=== PATIENT | female | born 1940 | race Caucasian/White ===

== ENCOUNTER → 2016-05-16 | Outpatient (CLI) | payer MEDICARE, BC ==
--- NOTE | 2016-05-16 12:55 | REP ---
PA and lateral chest: Comparison is 08/27/2005. The lung irene are clear. The cardiac size is normal The hanane, mediastinum, and bony thorax are unremarkable. Impression: Negative PA and lateral chest. There is no interval change. Signed by Usman Slater MD 05/16/2016 12:46 P
== END ==
LOC: M ADAMS 11:45
PROVIDERS: ATTEND Family Medicine
DX: R05 Cough (principal)

== ENCOUNTER → 2016-10-07 | Outpatient (REF) | payer MEDICARE, BC ==
[2016-10-07 12:47] LABS: BASO % 0.8 % (0.0-1.0); EOS # 0.4 K/mm3 (0.0-0.50); EOS % 7.6 % (0.0-3.0); LARGE UNSTAINED CELL # 0.1 K/mm3 (0.0-0.4); LARGE UNSTAINED CELL % 2.4 % (0.0-4.0); LYMPH # 1.2 K/mm3 (1.5-4.5); LYMPH % 21.1 % (24.0-44.0); MEAN CORPUSCULAR HEMOGLOBIN 30.9 pg (27.0-33.0); MEAN CORPUSCULAR HGB CONC 33.2 g/dl (32.0-36.5); MEAN CORPUSCULAR VOLUME 93.2 fl (80.0-96.0); MONO # 0.3 K/mm3 (0.0-0.8); MONO % 5.3 % (0.0-5.0); NEUTROPHILS # 3.2 K/mm3 (1.8-7.7); NEUTROPHILS % 62.8 % (36.0-66.0); PLATELET COUNT, AUTOMATED 167 k/mm3 (150-450); RED CELL DISTRIBUTION WIDTH 13.4 % (11.5-14.5); WHITE BLOOD COUNT 5.1 K/mm3 (4.0-10.0)
[2016-10-07 13:14] LABS: ALBUMIN 3.6 GM/DL (3.2-5.2); ALBUMIN/GLOBULIN RATIO 0.97 (1.00-1.93); BILIRUBIN,TOTAL 0.4 MG/DL (0.2-1.0); CALCIUM LEVEL 8.6 MG/DL (8.8-10.2); CREATININE FOR GFR 1.03 MG/DL (0.55-1.02); FREE T4 0.79 NG/DL (0.76-1.46); GLOMERULAR FILTRATION RATE 55.8 (>39); POTASSIUM SERUM 4.9 MEQ/L (3.5-5.1); TOTAL PROTEIN 7.3 GM/DL (6.4-8.2)
== END ==
LOC: M SFHCADAM 08:02
PROVIDERS: ATTEND Family Medicine
DX: M32.9 Systemic lupus erythematosus, unspecified (principal); I10 Essential (primary) hypertension; R63.5 Abnormal weight gain

== ENCOUNTER → 2017-07-19 | Outpatient (REF) | payer MEDICARE, BC ==
[2017-07-19 13:42] LABS: BASO % 0.4 % (0.0-1.0); EOS # 0.2 10^3/uL (0.0-0.50); EOS % 4.4 % (0.0-3.0); HEMATOCRIT 35.2 % (36.0-47.0); IMMATURE GRANULOCYTE % 0.2 % (0-3.0); LYMPH % 20.8 % (24.0-44.0); MEAN CORPUSCULAR HEMOGLOBIN 29.4 pg (27.0-33.0); MEAN CORPUSCULAR HGB CONC 31.3 g/dl (32.0-36.5); MEAN CORPUSCULAR VOLUME 94.1 fl (80.0-96.0); MONO # 0.4 10^3/uL (0.0-0.8); MONO % 8.7 % (0.0-5.0); NEUTROPHILS # 3.1 10^3/uL (1.8-7.7); NEUTROPHILS % 65.5 % (36.0-66.0); PLATELET COUNT, AUTOMATED 159 10^3/uL (150-450); RED BLOOD COUNT 3.74 10^6/uL (4.00-5.40); RED CELL DISTRIBUTION WIDTH 14.3 % (11.5-14.5); WHITE BLOOD COUNT 4.7 10^3/uL (4.0-10.0)
[2017-07-19 13:49] LABS: APPEARANCE, URINE CLEAR (CLEAR); BACTERIA, URINE AUTO 2+ (NEGATIVE); BILIRUBIN, URINE AUTO NEGATIVE (NEGATIVE); BLOOD, URINE BLOOD 1+ (NEGATIVE); COLOR, URINE YELLOW (YELLOW); GLUCOSE, URINE (UA) AUTO NEGATIVE (NEGATIVE); KETONE, URINE AUTO NEGATIVE (NEGATIVE); LEUKOCYTE ESTERASE, URINE AUTO 3+ (NEGATIVE); MUCUS, URINE SMALL (NEGATIVE); NITRITE, URINE AUTO NEGATIVE (NEGATIVE); PROTEIN, URINE AUTO NEGATIVE (NEGATIVE); RBC, URINE AUTO 5 /HPF (0-3); SPECIFIC GRAVITY URINE AUTO 1.014 (1.002-1.035); SQUAMOUS EPITHELIAL CELL UR AU 0 /HPF (0-6); UROBILINOGEN, URINE AUTO 0.2 mg/dL (0.0-2.0); WBC, URINE AUTO 147 /HPF (0-3)
[2017-07-19 14:15] LABS: ERYTHROCYTE SEDIMENTATION RATE 45 mm/hr (0-30)
[2017-07-19 19:52] LABS: ALBUMIN 3.5 GM/DL (3.2-5.2); ALBUMIN/GLOBULIN RATIO 1.03 (1.00-1.93); ALKALINE PHOSPHATASE 72 U/L (45-117); ALT/SGPT 16 U/L (12-78); ANION GAP 5 MEQ/L (8-16); AST/SGOT 19 U/L (7-37); BILIRUBIN,TOTAL 0.3 MG/DL (0.2-1.0); BLOOD UREA NITROGEN 23 MG/DL (7-18); C REACTIVE PROTEIN QUANTITATIV 0.47 MG/DL (0.00-0.30); CALCIUM LEVEL 8.4 MG/DL (8.8-10.2); CARBON DIOXIDE LEVEL 30 MEQ/L (21-32); CHLORIDE LEVEL 107 MEQ/L (98-107); COMPLEMENT C3 107 MG/DL (90-180); COMPLEMENT C4 29.2 MG/DL (10-40); CREATININE FOR GFR 0.88 MG/DL (0.55-1.30); GLOMERULAR FILTRATION RATE > 60.0 (>39); GLUCOSE, FASTING 83 MG/DL (70-100); POTASSIUM SERUM 4.3 MEQ/L (3.5-5.1); SODIUM LEVEL 142 MEQ/L (136-145); TOTAL PROTEIN 6.9 GM/DL (6.4-8.2)
[2017-07-20 14:14] LABS: ANTI DOUBLE STRAND-DNA AB 1 IU/mL (0-9)
== END ==
LOC: M LABDRWAD 13:28
DX: M32.19 Other organ or system involvement in systemic lupus erythematosus (principal)
CPT/HCPCS: 80053

== ENCOUNTER → 2017-10-03 | Outpatient (REF) | payer MEDICARE, BC ==
[2017-10-03 13:14] LABS: APPEARANCE, URINE HAZY (CLEAR); BACTERIA, URINE AUTO 1+ (NEGATIVE); BILIRUBIN, URINE AUTO NEGATIVE (NEGATIVE); BLOOD, URINE BLOOD NEGATIVE (NEGATIVE); COLOR, URINE YELLOW (YELLOW); GLUCOSE, URINE (UA) AUTO NEGATIVE (NEGATIVE); KETONE, URINE AUTO NEGATIVE (NEGATIVE); LEUKOCYTE ESTERASE, URINE AUTO 3+ (NEGATIVE); MUCUS, URINE SMALL (NEGATIVE); NITRITE, URINE AUTO NEGATIVE (NEGATIVE); PROTEIN, URINE AUTO NEGATIVE (NEGATIVE); RBC, URINE AUTO 2 /HPF (0-3); SPECIFIC GRAVITY URINE AUTO 1.017 (1.002-1.035); SQUAMOUS EPITHELIAL CELL UR AU 0 /HPF (0-6); UROBILINOGEN, URINE AUTO 0.2 mg/dL (0.0-2.0); WBC, URINE AUTO 81 /HPF (0-3)
== END ==
LOC: M LABDRWAD 12:50
DX: M32.19 Other organ or system involvement in systemic lupus erythematosus (principal)

== ENCOUNTER → 2017-10-03 | Outpatient (REF) | payer MEDICARE, BC ==
[2017-10-03 13:02] LABS: BASO % 0.4 % (0.0-1.0); EOS # 0.2 10^3/uL (0.0-0.50); EOS % 3.5 % (0.0-3.0); HEMATOCRIT 36.5 % (36.0-47.0); HEMOGLOBIN 11.6 g/dl (12.0-15.5); IMMATURE GRANULOCYTE % 0.4 % (0-3.0); LYMPH # 1.1 10^3/uL (1.5-4.5); LYMPH % 22.7 % (24.0-44.0); MEAN CORPUSCULAR HEMOGLOBIN 29.9 pg (27.0-33.0); MEAN CORPUSCULAR HGB CONC 31.8 g/dl (32.0-36.5); MEAN CORPUSCULAR VOLUME 94.1 fl (80.0-96.0); MONO # 0.4 10^3/uL (0.0-0.8); MONO % 8.8 % (0.0-5.0); NEUTROPHILS # 3.1 10^3/uL (1.8-7.7); NEUTROPHILS % 64.2 % (36.0-66.0); PLATELET COUNT, AUTOMATED 179 10^3/uL (150-450); RED BLOOD COUNT 3.88 10^6/uL (4.00-5.40); WHITE BLOOD COUNT 4.8 10^3/uL (4.0-10.0)
[2017-10-03 13:28] LABS: ALBUMIN 3.3 GM/DL (3.2-5.2); ALBUMIN/GLOBULIN RATIO 0.83 (1.00-1.93); ALKALINE PHOSPHATASE 67 U/L (45-117); ALT/SGPT 18 U/L (12-78); ANION GAP 7 MEQ/L (8-16); AST/SGOT 20 U/L (7-37); BILIRUBIN,TOTAL 0.4 MG/DL (0.2-1.0); BLOOD UREA NITROGEN 33 MG/DL (7-18); CALCIUM LEVEL 8.6 MG/DL (8.8-10.2); CARBON DIOXIDE LEVEL 31 MEQ/L (21-32); CHLORIDE LEVEL 104 MEQ/L (98-107); CHOLESTEROL LEVEL 208 MG/DL (<200); CREATININE FOR GFR 0.92 MG/DL (0.55-1.30); FREE T4 0.75 NG/DL (0.76-1.46); GLOMERULAR FILTRATION RATE > 60.0 (>39); GLUCOSE, FASTING 87 MG/DL (70-100); HDL CHOLESTEROL 87 MG/DL (>40); LDL CHOLESTEROL 108.6 MG/DL (<100); NON-HDL-C 121 MG/DL; POTASSIUM SERUM 4.5 MEQ/L (3.5-5.1); SODIUM LEVEL 142 MEQ/L (136-145); TOTAL PROTEIN 7.3 GM/DL (6.4-8.2); TRIGLYCERIDES LEVEL 62 MG/DL (<150)
== END ==
LOC: M LABDRWAD 12:48
DX: I10 Essential (primary) hypertension (principal); I73.00 Raynaud's syndrome without gangrene; N28.9 Disorder of kidney and ureter, unspecified; M32.19 Other organ or system involvement in systemic lupus erythematosus
CPT/HCPCS: 84443

== ENCOUNTER → 2018-05-01 | Outpatient (REF) | payer MEDICARE, BC | LOC: M SFHCPLAZ 17:49 | PROVIDERS: ATTEND Dermatology | DX: L72.0 Epidermal cyst (principal); D23.39 Other benign neoplasm of skin of other parts of face ==

== ENCOUNTER → 2018-05-08 | Outpatient (REF) | payer MEDICARE, BC ==
[2018-05-08 10:29] LABS: FREE T4 0.76 NG/DL (0.76-1.46); THYROID STIMULATING HORMONE 4.81 uIU/ML (0.358-3.740)
== END ==
LOC: M SFHCADAM 07:57
PROVIDERS: ATTEND Family Medicine
DX: I10 Essential (primary) hypertension (principal); M32.9 Systemic lupus erythematosus, unspecified; I73.00 Raynaud's syndrome without gangrene; N28.9 Disorder of kidney and ureter, unspecified

== ENCOUNTER → 2018-07-23 | Outpatient (CLI) | payer MEDICARE, BC ==
--- NOTE | 2018-07-23 14:16 | REP ---
Bilateral hand series: Eight views. History: Primary osteoarthritis. No comparison hand radiographs. Findings: The patient was apparently unable to remove her finger jewelry. Rings are noted over the proximal phalanges of the right long and small finger and the left ring and small finger. There is mild diffuse osteopenia. There is fairly extensive chondrocalcinosis in the wrists bilaterally. There is advanced osteoarthritis in the first carpometacarpal articulation bilaterally. Advanced osteoarthritis is seen in the navicular multangular articulation on the right and left as well. There is mild degenerative sclerosis in the distal radioulnar joint on the right. There are moderate osteoarthritic changes including joint space narrowing and spur formation involving the MCP joints of digits 1-4 on the right and there is advanced osteoarthritis involving the MCP joints of the index, long, ring, and small fingers and the DIP joints of all of these digits as well. There is some central erosive change at the index PIP joint which may reflect erosive osteoarthritis. Soft tissue swelling is seen at this joint and at the DIP joint of the index finger and the PIP joint of the long finger on the right. On the left there are similar erosive osteoarthritic changes involving the index PIP, long finger DIP, ring finger DIP joints with soft tissue swelling at each of these levels. There are lesser osteoarthritic changes at the other DIP and PIP joints of the fingers. There is osteoarthritic spurring at the IP joint of the thumb on the left as well. Impression: Radiographic changes consistent with erosive osteoarthritis. Electronically Signed by Edgar Reyna MD 07/23/2018 03:49 P
[2018-07-23 18:16] LABS: BASO % 0.8 % (0.0-1.0); EOS # 0.1 10^3/uL (0.0-0.50); EOS % 1.7 % (0.0-3.0); LYMPH # 0.9 10^3/uL (1.5-4.5); LYMPH % 17.6 % (24.0-44.0); MEAN CORPUSCULAR HGB CONC 31.6 g/dl (32.0-36.5); MEAN CORPUSCULAR VOLUME 98.2 fl (80.0-96.0); MONO # 0.5 10^3/uL (0.0-0.8); MONO % 9.1 % (0.0-5.0); NEUTROPHILS # 3.7 10^3/uL (1.8-7.7); NEUTROPHILS % 70.6 % (36.0-66.0); PLATELET COUNT, AUTOMATED 196 10^3/uL (150-450); RED BLOOD COUNT 3.87 10^6/uL (4.00-5.40); WHITE BLOOD COUNT 5.2 10^3/uL (4.0-10.0)
[2018-07-23 18:17] LABS: TOTAL PROTEIN,RANDOM URINE 15.7 MG/DL (0.0-12.0)
[2018-07-23 18:25] LABS: APPEARANCE, URINE HAZY (CLEAR); BACTERIA, URINE AUTO 2+ (NEGATIVE); BILIRUBIN, URINE AUTO NEGATIVE (NEGATIVE); BLOOD, URINE BLOOD 1+ (NEGATIVE); COLOR, URINE YELLOW (YELLOW); GLUCOSE, URINE (UA) AUTO NEGATIVE (NEGATIVE); KETONE, URINE AUTO NEGATIVE (NEGATIVE); LEUKOCYTE ESTERASE, URINE AUTO 3+ (NEGATIVE); NITRITE, URINE AUTO POSITIVE (NEGATIVE); PROTEIN, URINE AUTO NEGATIVE (NEGATIVE); RBC, URINE AUTO 6 /HPF (0-3); SPECIFIC GRAVITY URINE AUTO 1.019 (1.002-1.035); SQUAMOUS EPITHELIAL CELL UR AU 0 /HPF (0-6); UROBILINOGEN, URINE AUTO 0.2 mg/dL (0.0-2.0); WBC, URINE AUTO 161 /HPF (0-3)
[2018-07-23 19:07] LABS: ALBUMIN 3.7 GM/DL (3.2-5.2); ALT/SGPT 17 U/L (12-78); BILIRUBIN,TOTAL 0.3 MG/DL (0.2-1.0); BLOOD UREA NITROGEN 34 MG/DL (7-18); C REACTIVE PROTEIN QUANTITATIV 0.62 MG/DL (0.00-0.30); CALCIUM LEVEL 9.1 MG/DL (8.8-10.2); CARBON DIOXIDE LEVEL 31 MEQ/L (21-32); CHLORIDE LEVEL 105 MEQ/L (98-107); COMPLEMENT C3 122 MG/DL (90-180); COMPLEMENT C4 33 MG/DL (10-40); CREATININE FOR GFR 0.96 MG/DL (0.55-1.30); ERYTHROCYTE SEDIMENTATION RATE 41 mm/hr (0-30); GLOMERULAR FILTRATION RATE > 60.0 (>39); GLUCOSE, FASTING 86 MG/DL (70-100); POTASSIUM SERUM 4.8 MEQ/L (3.5-5.1); RHEUMATOID FACTOR QUANT < 10.0 IU/ML (<15.0); SODIUM LEVEL 139 MEQ/L (136-145); TOTAL PROTEIN 7.1 GM/DL (6.4-8.2)
[2018-07-27 14:55] LABS: ANTI DS-DNA AB <1:10 titer (.); CYCLIC CITRULLINATED PEPTIDE 4 units (0-19)
== END ==
LOC: M WUC 11:18
PROVIDERS: ATTEND Internal Medicine Rheumatology
DX: M15.0 Primary generalized (osteo)arthritis (principal); M32.9 Systemic lupus erythematosus, unspecified
CPT/HCPCS: 36415; 73130; 80053; 81001; 82570; 84156; 85025; 85652; 86140; 86160; 86200; 86225; 86431; G0463

== ENCOUNTER → 2018-07-27 | Outpatient (REF) | payer MEDICARE, BC | LOC: M SFHCADAM 14:51 | PROVIDERS: ATTEND Family Medicine | DX: R74.8 Abnormal levels of other serum enzymes (principal); R31.9 Hematuria, unspecified | CPT/HCPCS: 82977; 87088; 87186; G0463 ==

== ENCOUNTER → 2018-08-09 | Outpatient (REF) | payer MEDICARE, BC ==
[2018-08-09 13:17] LABS: ALBUMIN 3.6 GM/DL (3.2-5.2); BILIRUBIN,TOTAL 0.4 MG/DL (0.2-1.0); CREATININE FOR GFR 0.97 MG/DL (0.55-1.30); GLOMERULAR FILTRATION RATE 59.4 (>39); POTASSIUM SERUM 4.4 MEQ/L (3.5-5.1); TOTAL PROTEIN 7.3 GM/DL (6.4-8.2)
[2018-08-09 13:20] LABS: TOTAL 25(OH) VITAMIN D 19.9 NG/ML (30.0-100.0)
== END ==
LOC: M SFHCADAM 11:04
PROVIDERS: ATTEND Family Medicine
DX: R94.5 Abnormal results of liver function studies (principal); R31.9 Hematuria, unspecified; E55.9 Vitamin D deficiency, unspecified
CPT/HCPCS: 80053; 82306; G0463

== ENCOUNTER → 2018-08-14 | Outpatient (REF) | payer MEDICARE, BC ==
[2018-08-14 19:53] LABS: APPEARANCE, URINE CLEAR (CLEAR); BACTERIA, URINE AUTO NEGATIVE (NEGATIVE); BILIRUBIN, URINE AUTO NEGATIVE (NEGATIVE); BLOOD, URINE BLOOD NEGATIVE (NEGATIVE); COLOR, URINE YELLOW (YELLOW); GLUCOSE, URINE (UA) AUTO NEGATIVE (NEGATIVE); KETONE, URINE AUTO NEGATIVE (NEGATIVE); LEUKOCYTE ESTERASE, URINE AUTO NEGATIVE (NEGATIVE); MUCUS, URINE SMALL (NEGATIVE); NITRITE, URINE AUTO NEGATIVE (NEGATIVE); PROTEIN, URINE AUTO NEGATIVE (NEGATIVE); RBC, URINE AUTO 1 /HPF (0-3); SQUAMOUS EPITHELIAL CELL UR AU 0 /HPF (0-6); UROBILINOGEN, URINE AUTO 0.2 mg/dL (0.0-2.0); WBC, URINE AUTO 0 /HPF (0-3)
== END ==
LOC: M SFHCADAM 19:21
PROVIDERS: ATTEND Family Medicine
DX: R31.9 Hematuria, unspecified (principal)

== ENCOUNTER → 2018-12-17 | Outpatient (REF) | payer MEDICARE, BC ==
[2018-12-17 13:08] LABS: BASO # 0.1 10^3/uL (0.0-0.2); EOS # 0.2 10^3/uL (0.0-0.5); EOS % 3.7 % (0.0-3.0); HEMATOCRIT 39.3 % (36.0-47.0); HEMOGLOBIN 12.1 g/dl (12.0-15.5); LYMPH # 1.4 10^3/uL (1.5-5.0); LYMPH % 23.1 % (24.0-44.0); MEAN CORPUSCULAR HEMOGLOBIN 30.3 pg (27.0-33.0); MEAN CORPUSCULAR HGB CONC 30.8 g/dl (32.0-36.5); MEAN CORPUSCULAR VOLUME 98.3 fl (80.0-96.0); MONO # 0.5 10^3/uL (0.0-0.8); MONO % 8.7 % (0.0-5.0); NEUTROPHILS # 3.7 10^3/uL (1.5-8.5); NEUTROPHILS % 63.3 % (36.0-66.0); PLATELET COUNT, AUTOMATED 170 10^3/uL (150-450); WHITE BLOOD COUNT 5.9 10^3/uL (4.0-10.0)
[2018-12-17 13:15] LABS: ALBUMIN 3.6 GM/DL (3.2-5.2); ALT/SGPT 15 U/L (12-78); BILIRUBIN,TOTAL 0.5 MG/DL (0.2-1.0); BLOOD UREA NITROGEN 23 MG/DL (7-18); CALCIUM LEVEL 9.1 MG/DL (8.8-10.2); CARBON DIOXIDE LEVEL 32 MEQ/L (21-32); CHLORIDE LEVEL 102 MEQ/L (98-107); CREATININE FOR GFR 0.87 MG/DL (0.55-1.30); GLOMERULAR FILTRATION RATE > 60.0 (>39); GLUCOSE, FASTING 84 MG/DL (70-100); POTASSIUM SERUM 4.2 MEQ/L (3.5-5.1); SODIUM LEVEL 141 MEQ/L (136-145); TOTAL PROTEIN 7.5 GM/DL (6.4-8.2)
== END ==
LOC: M SFHCADAM 10:26
PROVIDERS: ATTEND Family Medicine
DX: I10 Essential (primary) hypertension (principal)
CPT/HCPCS: 80053; 85025; G0463

== ENCOUNTER → 2019-01-29 | Outpatient (REF) | payer MEDICARE, BC | LOC: M PLALAB 14:52 | PROVIDERS: ATTEND Nurse Practitioner Family | DX: Z12.4 Encounter for screening for malignant neoplasm of cervix (principal); N95.8 Other specified menopausal and perimenopausal disorders | CPT/HCPCS: 57500; 88305; G0123; G0463 ==

== ENCOUNTER → 2019-03-15 | Outpatient (REF) | payer MEDICARE, BC ==
[2019-03-15 12:59] LABS: BASO % 0.7 % (0.0-1.0); EOS # 0.2 10^3/uL (0.0-0.5); EOS % 3.8 % (0.0-3.0); HEMATOCRIT 37.4 % (36.0-47.0); HEMOGLOBIN 11.7 g/dl (12.0-15.5); LYMPH # 0.9 10^3/uL (1.5-5.0); LYMPH % 20.3 % (24.0-44.0); MEAN CORPUSCULAR HEMOGLOBIN 29.8 pg (27.0-33.0); MEAN CORPUSCULAR HGB CONC 31.3 g/dl (32.0-36.5); MEAN CORPUSCULAR VOLUME 95.4 fl (80.0-96.0); MONO # 0.4 10^3/uL (0.0-0.8); MONO % 9.5 % (0.0-5.0); NEUTROPHILS # 2.9 10^3/uL (1.5-8.5); NEUTROPHILS % 65.5 % (36.0-66.0); PLATELET COUNT, AUTOMATED 179 10^3/uL (150-450); RED BLOOD COUNT 3.92 10^6/uL (4.00-5.40); WHITE BLOOD COUNT 4.4 10^3/uL (4.0-10.0)
[2019-03-15 13:10] LABS: APPEARANCE, URINE CLEAR (CLEAR); BACTERIA, URINE AUTO NEGATIVE (NEGATIVE); BILIRUBIN, URINE AUTO NEGATIVE (NEGATIVE); BLOOD, URINE BLOOD NEGATIVE (NEGATIVE); COLOR, URINE STRAW (YELLOW); GLUCOSE, URINE (UA) AUTO NEGATIVE (NEGATIVE); KETONE, URINE AUTO NEGATIVE (NEGATIVE); LEUKOCYTE ESTERASE, URINE AUTO NEGATIVE (NEGATIVE); MUCUS, URINE SMALL (NEGATIVE); NITRITE, URINE AUTO NEGATIVE (NEGATIVE); PROTEIN, URINE AUTO NEGATIVE (NEGATIVE); RBC, URINE AUTO 0 /HPF (0-3); SPECIFIC GRAVITY URINE AUTO 1.013 (1.002-1.035); SQUAMOUS EPITHELIAL CELL UR AU 0 /HPF (0-6); UROBILINOGEN, URINE AUTO 0.2 mg/dL (0.0-2.0); WBC, URINE AUTO 0 /HPF (0-3)
[2019-03-15 13:22] LABS: ALBUMIN 3.5 GM/DL (3.2-5.2); ALT/SGPT 18 U/L (12-78); BILIRUBIN,TOTAL 0.4 MG/DL (0.2-1.0); BLOOD UREA NITROGEN 26 MG/DL (7-18); CALCIUM LEVEL 8.7 MG/DL (8.8-10.2); CARBON DIOXIDE LEVEL 32 MEQ/L (21-32); CHLORIDE LEVEL 106 MEQ/L (98-107); COMPLEMENT C3 118 MG/DL (90-180); COMPLEMENT C4 28 MG/DL (10-40); CREATININE FOR GFR 0.86 MG/DL (0.55-1.30); ERYTHROCYTE SEDIMENTATION RATE 41 mm/hr (0-30); GLOMERULAR FILTRATION RATE > 60.0 (>39); GLUCOSE, FASTING 90 MG/DL (70-100); POTASSIUM SERUM 4.4 MEQ/L (3.5-5.1); SODIUM LEVEL 141 MEQ/L (136-145); TOTAL PROTEIN 6.9 GM/DL (6.4-8.2)
[2019-03-19 10:10] LABS: ANTI DS-DNA AB Negative (Negative)
== END ==
LOC: M SFHCRHEU 08:48
PROVIDERS: ATTEND Internal Medicine
DX: M32.9 Systemic lupus erythematosus, unspecified (principal)

== ENCOUNTER → 2019-04-25 | Outpatient (CLI) | payer MEDICARE, BC ==
--- NOTE | 2019-04-25 10:54 | REP ---
Right shoulder three views: There is acromioclavicular osteoarthritis. There is mild glenohumeral osteoarthritis. There is demineralization. There is no fracture or dislocation. There are no calcifications or foreign bodies. Impression: Demineralization. Osteoarthritis. Electronically Signed by Usman Slater MD 04/25/2019 10:46 A
== END ==
LOC: M ADAMS 10:18
PROVIDERS: ATTEND Family Medicine
DX: M19.011 Primary osteoarthritis, right shoulder (principal); M25.511 Pain in right shoulder
CPT/HCPCS: 73030; G0463

== ENCOUNTER → 2020-04-02 | Outpatient (REF) | payer MEDICARE, BC ==
[2020-04-02 13:37] LABS: BASO % 0.5 % (0.0-1.0); EOS # 0.1 10^3/uL (0.0-0.5); EOS % 2.1 % (0.0-3.0); HEMATOCRIT 39.3 % (36.0-47.0); HEMOGLOBIN 12.5 g/dl (12.0-15.5); LYMPH % 15.5 % (24.0-44.0); MEAN CORPUSCULAR HGB CONC 31.8 g/dl (32.0-36.5); MEAN CORPUSCULAR VOLUME 97.5 fl (80.0-96.0); MONO # 0.5 10^3/uL (0.0-0.8); NEUTROPHILS # 4.9 10^3/uL (1.5-8.5); NEUTROPHILS % 73.6 % (36.0-66.0); PLATELET COUNT, AUTOMATED 152 10^3/uL (150-450); RED BLOOD COUNT 4.03 10^6/uL (4.00-5.40); WHITE BLOOD COUNT 6.7 10^3/uL (4.0-10.0)
[2020-04-02 14:03] LABS: ALBUMIN 3.6 GM/DL (3.2-5.2); ALT/SGPT 18 U/L (12-78); BILIRUBIN,TOTAL 0.4 MG/DL (0.2-1.0); BLOOD UREA NITROGEN 23 MG/DL (7-18); CALCIUM LEVEL 9.1 MG/DL (8.8-10.2); CARBON DIOXIDE LEVEL 31 MEQ/L (21-32); CHLORIDE LEVEL 103 MEQ/L (98-107); CHOLESTEROL LEVEL 284 MG/DL (<200); CHOLESTEROL RISK RATIO 2.868 (<5); CREATININE FOR GFR 0.85 MG/DL (0.55-1.30); GLOMERULAR FILTRATION RATE > 60.0 (>39); GLUCOSE, FASTING 85 MG/DL (70-100); HDL CHOLESTEROL 99 MG/DL (>40); LDL CHOLESTEROL 173 MG/DL (<100); NON-HDL-C 185 MG/DL; POTASSIUM SERUM 4.9 MEQ/L (3.5-5.1); SODIUM LEVEL 140 MEQ/L (136-145); TRIGLYCERIDES LEVEL 61 MG/DL (<150)
== END ==
LOC: M SFHCADAM 08:13
PROVIDERS: ATTEND Family Medicine
DX: R10.11 Right upper quadrant pain (principal); E78.2 Mixed hyperlipidemia; L91.8 Other hypertrophic disorders of the skin

== ENCOUNTER → 2020-04-16 | Outpatient (CLI) | payer MEDICARE, BC ==
--- NOTE | 2020-04-16 10:01 | REP ---
INDICATION: RUQ PAIN COMPARISON: None. TECHNIQUE: Real time worthington scale ultrasound examination using curved array transducer. FINDINGS: Liver and pancreas are normal in contour, size, and echogenicity without focal hepatic or pancreatic lesions identified. The gallbladder demonstrates multiple mobile gallstones without wall thickening or pericholecystic fluid. Common bile duct is upper limits of normal at 7 mm diameter. No intrahepatic biliary dilatation is appreciated. Right kidney measures 10.5 x 5.0 x 5.5 cm with 1.8 cm peripelvic cyst. No hydronephrosis. No ascites in the visualized right upper quadrant. Visualized portions of the abdominal aorta demonstrate atherosclerotic disease. IMPRESSION: Cholelithiasis without evidence for acute cholecystitis. Incidental simple right peripelvic renal cyst. <Electronically signed by Marcelino Quinn > 04/16/20 [id number]
== END ==
LOC: M RAD 09:18
PROVIDERS: ATTEND Family Medicine
DX: K80.20 Calculus of gallbladder without cholecystitis without obstruction (principal); N28.1 Cyst of kidney, acquired

== ENCOUNTER 2020-05-01 11:18 | Emergency (ER) | payer MEDICARE, BC ==
[~2020-05-01] VITALS: Ht 170.2 cm; Wt 81.8 kg
[2020-05-01 11:33] VITALS: BP 160/90
[2020-05-01] MEDS ORDERED: traMADol 50 MG TAB PO ONE (11:55)
[2020-05-01] MEDS ORDERED: ACETAMINOPHEN 325 MG TAB PO ONE (11:55)
--- NOTE | 2020-05-01 12:22 | REP ---
INDICATION: trauma COMPARISON: Right shoulder dated 12/08/2015. TECHNIQUE: There are two views. FINDINGS: There is an impacted fracture of the humeral neck as an interval change. There is no dislocation. There are no calcifications or foreign bodies. IMPRESSION: Impacted fracture of the humeral neck as an interval change. <Electronically signed by Usman Slater > 05/01/20 [id number]
--- NOTE | 2020-05-01 12:48 | REP ---
INDICATION: trauma, periorbital. COMPARISON: NONE. TECHNIQUE: Helical scanning is acquired and 2 mm axial images re-formatted. Coronal MPR images are generated and reviewed. FINDINGS: There is left periorbital soft tissue swelling. Orbital margins are intact. Maxillary, frontal, ethmoid, and sphenoid sinuses are clear. Bony nasal septum is midline. Aerated francisco bullosa are noted bilaterally. No nasal bone fracture is seen. Inferior maxillary spine appears intact. Zygomatic arches are intact. Vascular calcification is noted in the distal internal carotid arteries. No intraorbital hematoma is seen. Visualized intracranial structures are unremarkable. IMPRESSION: Left periorbital soft tissue swelling. No traumatic bony abnormality. Vascular calcification. Otherwise negative. <Electronically signed by Michael Reyna > 05/01/20 [id number]
[2020-05-01] MEDS ORDERED: ULTR50TA8 PO (13:13)
== END 2020-05-01 13:40 | disposition home or self-care (01) ==
LOC: EDBD 11:18 → M ED 11:18
DX: S42.292A Other displaced fracture of upper end of left humerus, initial encounter for closed fracture (principal); S00.83XA Contusion of other part of head, initial encounter; S00.81XA Abrasion of other part of head, initial encounter; W01.0XXA Fall on same level from slipping, tripping and stumbling without subsequent striking against object, initial encounter; Y92.481 Parking lot as the place of occurrence of the external cause; M32.9 Systemic lupus erythematosus, unspecified; M19.90 Unspecified osteoarthritis, unspecified site

== ENCOUNTER → 2020-05-01 | Outpatient (REF) | payer MEDICARE, BC ==
[~2020-05-01] MED LIST: ULTR50TA8 PO
[2020-05-01 13:55] LABS: VITAMIN B12 LEVEL 457 PG/ML
== END ==
LOC: M SFHCADAM 09:16
PROVIDERS: ATTEND Family Medicine
DX: R41.3 Other amnesia (principal)

== ENCOUNTER → 2020-05-04 | Outpatient (CLI) | payer MEDICARE, BC ==
--- NOTE | 2020-05-04 17:37 | REP ---
INDICATION: F/U FX. COMPARISON: Comparison right shoulder radiographs December 08, 2015. Comparison right humerus radiographs May 01, 2020 shows a somewhat impacted fracture of the surgical neck of the right humerus.. TECHNIQUE: Single axillary view of the right shoulder is provided. FINDINGS: Impacted surgical neck fracture is seen. No dislocation is evident. No scapular fracture is appreciated. IMPRESSION: Single axillary view as above. <Electronically signed by Michael Reyna > 05/04/20 [id number]
== END ==
LOC: M SOG 15:03
PROVIDERS: ATTEND Orthopaedic Surgery Sports Medicine
DX: S42.224A 2-part nondisplaced fracture of surgical neck of right humerus, initial encounter for closed fracture (principal); X58.XXXA Exposure to other specified factors, initial encounter; Y92.89 Other specified places as the place of occurrence of the external cause

== ENCOUNTER → 2020-05-13 | Outpatient (REF) | payer MEDICARE, BC ==
[2020-05-13 18:11] LABS: FREE T4 0.73 NG/DL (0.76-1.46); THYROID STIMULATING HORMONE 4.33 uIU/ML (0.358-3.740)
== END ==
LOC: M SFHCADAM 12:09
PROVIDERS: ATTEND Family Medicine
DX: R94.6 Abnormal results of thyroid function studies (principal)

== ENCOUNTER → 2020-05-25 | Outpatient (CLI) | payer MEDICARE, BC ==
--- NOTE | 2020-05-25 15:03 | REP ---
INDICATION: F/U FX. COMPARISON: Humerus exam 05/01/2020 TECHNIQUE: Two AP views with axillary and scapular Y-views FINDINGS: There is no change in the appearance of the glenohumeral relationship when compared to the prior exam. No significant callus formation is seen surrounding the fracture fragments. No acute fractures have developed. The bones are demineralized. IMPRESSION: As above. Follow-up is recommended. <Electronically signed by Maco Parra > 05/25/20 [id number]
== END ==
LOC: M SOG 13:07
PROVIDERS: ATTEND Orthopaedic Surgery Sports Medicine
DX: S52.221 Displaced transverse fracture of shaft of right ulna (principal); Y92.9 Unspecified place or not applicable; Y93.9 Activity, unspecified; Y99.9 Unspecified external cause status

== ENCOUNTER → 2020-07-20 | Outpatient (CLI) | payer OTHER, MEDICARE, BC ==
--- NOTE | 2020-07-20 14:13 | REP ---
INDICATION: F/U FX. COMPARISON: 05/25/2020 TECHNIQUE: Four views FINDINGS: The previously described proximal humeral fracture is now seen with callus formation consistent with healing. There are no other significant changes. IMPRESSION: Healing fracture <Electronically signed by Maco Parra > 07/20/20 [id number]
== END ==
LOC: M SOG 11:36
PROVIDERS: ATTEND Orthopaedic Surgery Sports Medicine
DX: S42.224D 2-part nondisplaced fracture of surgical neck of right humerus, subsequent encounter for fracture with routine healing (principal)

== ENCOUNTER → 2020-08-28 | Outpatient (REF) | payer MEDICARE, BC ==
[~2020-08-28] MED LIST changes: +AUGM875T28 PO; +BACI1CAP PO; +CELE100C PO; +LISI-898 PO; +OLOP2.5D7 OU; +PRED5TA PO; +SYNT50TA PO; +TRAM50TA2 PO
[2020-08-28 12:52] LABS: C REACTIVE PROTEIN QUANTITATIV 0.43 MG/DL (0.00-0.30); MAGNESIUM LEVEL 2.1 MG/DL (1.8-2.4); PHOSPHORUS LEVEL 3.8 MG/DL (2.5-4.9)
[2020-08-28 13:00] LABS: TOTAL 25(OH) VITAMIN D 26.6 NG/ML (30.0-100.0)
[2020-08-28 13:24] LABS: APPEARANCE, URINE CLEAR (CLEAR); BACTERIA, URINE AUTO NEGATIVE (NEGATIVE); BILIRUBIN, URINE AUTO NEGATIVE (NEGATIVE); BLOOD, URINE BLOOD NEGATIVE (NEGATIVE); COLOR, URINE STRAW (YELLOW); GLUCOSE, URINE (UA) AUTO NEGATIVE (NEGATIVE); KETONE, URINE AUTO NEGATIVE (NEGATIVE); LEUKOCYTE ESTERASE, URINE AUTO NEGATIVE (NEGATIVE); NITRITE, URINE AUTO NEGATIVE (NEGATIVE); PROTEIN, URINE AUTO NEGATIVE (NEGATIVE); RBC, URINE AUTO 1 /HPF (0-3); SPECIFIC GRAVITY URINE AUTO 1.012 (1.002-1.035); SQUAMOUS EPITHELIAL CELL UR AU 0 /HPF (0-6); UROBILINOGEN, URINE AUTO 0.2 mg/dL (0.0-2.0); WBC, URINE AUTO 0 /HPF (0-3)
[2020-08-28 13:58] LABS: CREATININE,RANDOM URINE 45.3 MG/DL; TOTAL PROTEIN,RANDOM URINE 7.5 MG/DL (0.0-12.0)
== END ==
LOC: M SFHCRHEU 10:01
PROVIDERS: ATTEND Internal Medicine
DX: M32.9 Systemic lupus erythematosus, unspecified (principal); M79.10 Myalgia, unspecified site; Z79.899 Other long term (current) drug therapy
CPT/HCPCS: 81001; 82306; 82550; 82570; 82607; 83540; 83735; 84100; 84156; 85652; 86140; 86160; 86162; G0463

== ENCOUNTER → 2020-09-02 | Outpatient (CLI) | payer MEDICARE, BC ==
--- NOTE | 2020-09-02 09:47 | REP ---
INDICATION: BACK PAIN DUE TO INJURY. COMPARISON: Comparison radiographs of the right hip are from December 08, 2015.. TECHNIQUE: AP view of the pelvis. Single-view. FINDINGS: Bony pelvic ring is intact. There is mild sclerosis at the SI joints and symphysis pubis. Femoral heads are smooth and rounded. Hip joint spaces are preserved. There is vascular calcification noted. Degenerative spondylosis changes are noted in the lower lumbar spine. No bony destructive lesion is seen. Visualized bowel gas pattern is normal. IMPRESSION: No acute bony abnormality. Mild degenerative changes in the SI joints and symphysis pubis. <Electronically signed by Michael Reyna > 09/02/20 [id number]
--- NOTE | 2020-09-02 09:56 | REP ---
INDICATION: OSTEOARTHRITIS OF HAND, UNSPECIFIED LATERLITY OR TYPE. COMPARISON: Comparison bilateral hand series is from July 23, 2018.. TECHNIQUE: Total of 8 views. Bilateral hand radiographs. FINDINGS: Four views of each hand are provided. There is moderate diffuse osteopenia. Images of the right hand again demonstrate chondrocalcinosis at the radiocarpal articulation, a small accessory ossicle adjacent to the ulnar styloid. There is advanced osteoarthritis in the navicular 0 multangular and 1st carpometacarpal articulations with fairly large chest amount of spurring. Subcortical cyst formation is seen in the lunate and triquetrum. There is evidence of erosive arthropathy involving the PIP joint of the index finger, the PIP joint of the small finger, and to a somewhat lesser extent the D IP joints of the index, long, ring, and small fingers on the right. The radiographic findings of the right hand are felt to be unchanged from the 2019 prior study. Four views of the left hand demonstrate mild chondrocalcinosis. Subcortical cyst formation is seen in the lunate and navicular bone. There is advanced osteoarthritis in the navicular 0 multangular and in the 1st carpometacarpal articulation. Erosive osteoarthritis changes are seen in the PIP joint of the index long and ring finger and in the D IP joints of the long and ring fingers. Osteoarthritic changes are seen in the IP joint of the thumb. No acute erosive changes seen. Findings are radiographically stable from July 23, 2018. IMPRESSION: Stable although a fairly advanced erosive osteoarthritis changes bilateral hands as seen in 2019.. <Electronically signed by Michael Reyna > 09/02/20 [id number]
--- NOTE | 2020-09-02 09:59 | REP ---
INDICATION: BACK PAIN DUE TO INJURY. COMPARISON: None. TECHNIQUE: Seven views of the lumbar spine including flexion extension lateral views are provided. FINDINGS: Lumbar vertebral body heights are preserved. There is ar 6 mm L4-5 spondylolisthesis due to degenerative disc disease. This does not appear to change with flexion extension. There is osteoarthritic facet hypertrophy bilaterally at 4 5. There does not appear to be a pars interarticularis defect on either side. Alignment is otherwise normal. No subluxation or instability is seen. Vascular calcification is observed. There is degenerative disc disease with vacuum phenomena at L3-4 and degenerative disc narrowing and spur formation is seen at each of the other lumbar levels as well as at the thoracolumbar junction. No bony destructive lesion is seen. Osteoarthritic facet hypertrophy and sclerosis are noted at L5-S1 and to a lesser extent L3-4 in addition to the L4-5 changes. Sacrum and SI joints appear intact. Psoas margins are symmetric. The visualized bowel gas pattern is normal. IMPRESSION: Degenerative spondylosis changes. There is a stable 6 mm grade 1 degenerative L4-5 spondylolisthesis. <Electronically signed by Michael Reyna > 09/02/20 [id number]
== END ==
LOC: M ADAMS 08:41
PROVIDERS: ATTEND Internal Medicine
DX: M47.816 Spondylosis without myelopathy or radiculopathy, lumbar region (principal); M43.16 Spondylolisthesis, lumbar region; M11.241 Other chondrocalcinosis, right hand; M11.242 Other chondrocalcinosis, left hand; M19.041 Primary osteoarthritis, right hand; M19.042 Primary osteoarthritis, left hand; M54.9 Dorsalgia, unspecified
CPT/HCPCS: 72114; 72170; 73130; G0463

== ENCOUNTER → 2020-09-07 | Outpatient (CLI) | payer MEDICARE, BC ==
[~2020-09-07] MED LIST changes: -AUGM875T28 PO; -BACI1CAP PO; -CELE100C PO; -LISI-898 PO; -OLOP2.5D7 OU; -PRED5TA PO; -SYNT50TA PO; -TRAM50TA2 PO
--- NOTE | 2020-09-07 14:50 | DEXAMM ---
INDICATION: Z78.0 POSTMENOPAUSAL. COMPARISON: Comparison densitometry study December 21, 2007.. TECHNIQUE: Bone density was measured using dual-energy x-ray absorptionmetry (DEXA). FINDINGS: AP SPINE L1-L4 BMD 1.160 g/cm2 Young Adult T-Score -0.3 Age Matched Z-Score 1.5. LT FEMUR, TOTAL BMD 0.843 g/cm2 Young Adult T-Score -1.3 Age Matched Z-Score 0.6. LT NECK BMD 0.832 g/cm2 Young Adult T-Score -1.5 Age Matched Z-Score 0.6. RT FEMUR, TOTAL BMD 0.862 g/cm2 Young Adult T-Score -1.2 Age Matched Z-Score 0.7. RT NECK BMD 0.887 g/cm2 Young Adult T-Score -1.1 Age Matched Z-Score 1.0. IMPRESSION: There is low bone density of the spine. There is low bone density of the left hip. There is low bone density of the right hip. The density of the spine has increased 3.0% since the initial exam on December 21, 2007. The density of the left hip has decreased 13.0% since initial exam on December 21, 2007. The density of the right hip has decreased 17.0% since the initial exam on December 21, 2007. FOLLOW-UP: Recommendation for the next bone density exam: 2 years. <Electronically signed by Michael Reyan > 09/07/20 [id number]
== END ==
LOC: M WHC 13:01
PROVIDERS: ATTEND Internal Medicine
DX: M85.851 Other specified disorders of bone density and structure, right thigh (principal); M85.852 Other specified disorders of bone density and structure, left thigh

== ENCOUNTER 2020-09-13 10:25 | Inpatient (IN) | payer MEDICARE, BC ==
[~2020-09-13] VITALS: Ht 170.2 cm; Wt 82.9 kg
[2020-09-13] MEDS ORDERED: NS 1,000 ML IV SCH (11:00)
[2020-09-13 11:35] LABS: BASO % 0.3 % (0.0-1.0); EOS % 0.2 % (0.0-3.0); HEMATOCRIT 40.5 % (36.0-47.0); HEMOGLOBIN 12.9 g/dl (12.0-15.5); LYMPH # 0.5 10^3/uL (1.5-5.0); LYMPH % 8.7 % (24.0-44.0); MEAN CORPUSCULAR HEMOGLOBIN 30.1 pg (27.0-33.0); MEAN CORPUSCULAR HGB CONC 31.9 g/dl (32.0-36.5); MEAN CORPUSCULAR VOLUME 94.4 fl (80.0-96.0); MONO # 0.4 10^3/uL (0.0-0.8); MONO % 6.8 % (2.0-8.0); NEUTROPHILS % 83.7 % (36.0-66.0); PLATELET COUNT, AUTOMATED 150 10^3/uL (150-450); RED BLOOD COUNT 4.29 10^6/uL (4.00-5.40)
[2020-09-13 12:07] LABS: ALBUMIN 3.8 GM/DL (3.2-5.2); BILIRUBIN,DIRECT 1.8 MG/DL (0.0-0.2); BILIRUBIN,TOTAL 2.5 MG/DL (0.2-1.0); TOTAL PROTEIN 7.5 GM/DL (6.4-8.2)
[2020-09-13] MEDS ORDERED: ONDANSETRON 4MG/2ML VIAL IV ONE (12:40)
[2020-09-13 13:11] LABS: CK-MB VALUE MASS 1.7 NG/ML (<3.6); MB/CK RELATIVE INDEX 1.83 (< OR =4); TROPONIN I 0.04 NG/ML (< 0.10)
[2020-09-13] MEDS ORDERED: KETOROLAC 30 MG/ML 1ML VIAL IV ONE (13:45)
--- NOTE | 2020-09-13 13:55 | REP ---
INDICATION: RUQ pain, n,v. COMPARISON: None. TECHNIQUE: Multiple projection ultrasound evaluation of the right upper quadrant was performed. FINDINGS: There are multiple calcium and cholesterol gallstones largest measuring 15 mm in diameter. The gallbladder wall is not thickened. There is no pericholecystic fluid. The common bile duct is dilated measuring 10 mm in diameter. There is normal hepatic parenchyma. The pancreas is not well demonstrated due to overlying bowel gas. The right kidney measures 10.8 x 4.8 x 3.9 cm. There is a cortical cyst in the lower pole the right kidney measuring 14 mm in diameter. IMPRESSION: 1. Cholelithiasis without evidence of acute cholecystitis. 2. The common bile duct is dilated. 3. There is a benign cortical cyst in the lower pole the right kidney. <Electronically signed by Ganesh Hennessy > 09/13/20 [id number]
[2020-09-13] MEDS ORDERED: PIPERACILLIN/TAZOBACTAM SOD 3.375 GM in D5W MINI-BAG PLUS 50 ML IV ONE (14:05)
[2020-09-13] MEDS ORDERED: SYNT50TA PO (14:32)
[2020-09-13] MEDS ORDERED: TRAM50TA2 PO (14:32)
[2020-09-13] MEDS ORDERED: LISI-898 PO (14:32)
[2020-09-13] MEDS ORDERED: PRED5TA PO (14:32)
[2020-09-13] MEDS ORDERED: CELE100C PO (14:32)
[2020-09-13] MEDS ORDERED: OLOP2.5D7 OU (14:34)
[2020-09-13] MEDS ORDERED: HOME MED LIST COMPLETE! XX SCH (14:35)
[2020-09-13 15:04] LABS: RSV AMPLIFICATION NEGATIVE (NEGATIVE)
[2020-09-13] MEDS ORDERED: KETOROLAC 30 MG/ML 1ML VIAL IV PRN (15:15)
[2020-09-13] MEDS ORDERED: MORPHINE 4 MG/ML 1ML VIAL/SYRINGE (J2270) IV PRN (15:15)
[2020-09-13] MEDS ORDERED: ONDANSETRON 4MG/2ML VIAL IV PRN (15:15)
--- NOTE | 2020-09-13 15:42 | HPEPDOC ---
General Date of Admission 09/13/20 Date of Service: Sep 13, 2020 Primary Care Physician: JONAS JON DO Attending Physician: Mitch Cheek MD Chief Complaint The patient is a 80-year-old female admitted with a reason for visit of Abdominal Pain. Source: Patient, Family Exam Limitations: No limitations History of Present Illness Ms. Jeronimo has a known history of cholelithiasis but it is never caused her that much trouble. Occasionally she will get some twinges under her right costal margin. The evening before admission she decided to have a riley lettuce and tomato sandwich for supper. Shortly after eating the sandwich she began to have severe abdominal pain starting in her right upper quadrant and radiating through to her back. Then she began vomiting and she basically vomited up everything she is eating. Since then she has not had a desire to eat. She has still been passing gas and had a bowel movement. She reported to the emergency department this morning for further evaluation and treatment. A gallbladder ultrasound showed cholelithiasis and a dilated common bile duct. Home Medications Scheduled Celecoxib (Celebrex) 100 Mg Capsule, 100 MG PO BID, (Reported) Levothyroxine Sodium (Synthroid) 50 Mcg Tablet, 50 MCG PO DAILY, (Reported) Lisinopril (Lisinopril) 5 Mg Tablet, 5 MG PO QHS, (Reported) Olopatadine HCl (Olopatadine HCl) 0.2% 2.5ML Drops, 1 DROP OU DAILY, (Reported) Prednisone (Prednisone) 5 Mg Tablet, 5 MG PO Q2D, (Reported) Scheduled PRN Tramadol HCl (Tramadol HCl) 50 Mg Tablet, 50 MG PO Q6H PRN for PAIN LEVEL 5-10, (Reported) Allergies Coded Allergies: No Known Allergies (Unverified , 05/01/20) Past Medical History Medical History Hypertension, systemic lupus atheromatosis, history of cholelithiasis, hemorrhoids Surgical History "Most of my thyroid was removed" (1963), bilateral carpal tunnel surgery (1989), left total knee arthroplasty (1995), right total knee arthroplasty (2011) Family History Her father at 85 years of age of congestive heart failure. Her mother at 67 years of age of breast cancer. She has a sister who is alive but recently had an ND with coronary stenting. She has a son who is alive and overweight. She has a daughter who is alive with no known medical problems. Social History * Smoker: non-smoker Alcohol: Denies She attended 2 years of college. She lives in a house with her and has all that she needs on one floor. A-FIB/CHADSVASC A-FIB History Current/History of A-Fib/PAF?: No Current PO Anticoag Therapy: No Review of Systems Constitutional: Denies: Chills, Fever Skin: Denies: Jaundice, Bruising Pulmonary: Denies: Dyspnea, Cough Cardiovascular: Denies: Chest Pain, Palpitations, Lt Headedness Gastrointestinal: Reports: Nausea, Vomiting, Abdominal Pain; Denies: Melena, Hematochezia Genitourinary: Denies: Dysuria, Hematuria Hematologic: Denies: Bleeding Excessively, Enlarged Lymph Nodes Endocrine: Denies: Polydipsia, Polyphagia, Polyuria, Heat Intolerance, Cold Intolerance Neurological: Denies: Change in speech, Confusion Psych: Reports: Mood Normal; Denies: Depression, Memory Issues Physical Examination General Exam: Positive: Alert, Cooperative (sitting up in the ER strecher with the head of the bed elevated when I entered the room), No Acute Distress Eye Exam: Positive: Conjunctiva & lids normal; Negative: Sclera icteric ENT Exam: Positive: Atraumatic, Mucous membr. moist/pink, Pharynx Normal Neck Exam: Positive: Supple, Other (there is a well healed scar on her anterior chest from her previous thyroid surgery); Negative: thyromegaly, Lymphadenopathy Chest Exam: Positive: Clear to auscultation, Normal air movement Heart Exam: Positive: Rate Normal, Regular Rhythm, Normal S1, Normal S2; Negative: Murmurs Telemetry: Positive: No significant arrhythmia Abdomen Exam: Positive: BS Hypoactive, Tenderness (especially in the RUQ) Extremity Exam: Positive: Normal pulses; Negative: Edema, Swelling Skin Exam: Positive: Nl turgor and temperature Neuro Exam: Positive: Normal Speech, Normal Tone Psych Exam: Positive: Mental status NL, Mood NL, Oriented x 3 Other physical findings Gall bladder ultrasound: IMPRESSION: 1. Cholelithiasis without evidence of acute cholecystitis. 2. The common bile duct is dilated. 3. There is a benign cortical cyst in the lower pole the right kidney. Vital Signs Vital Signs Date Time Temp Pulse Resp B/P (MAP) Pulse Ox O2 Delivery O2 Flow Rate FiO2 09/13/20 14:38 97.7 57 18 180/80 (113) 99 Room Air Laboratory Data Labs 24H Laboratory Tests 2 09/13/20 11:16: Immature Granulocyte % (Auto) 0.3, Neutrophils (%) (Auto) 83.7H, Lymphocytes (%) (Auto) 8.7L, Monocytes (%) (Auto) 6.8, Eosinophils (%) (Auto) 0.2, Basophils (%) (Auto) 0.3, Neutrophils # (Auto) 5.0, Lymphocytes # (Auto) 0.5L, Monocytes # (Auto) 0.4, Eosinophils # (Auto) 0.0, Basophils # (Auto) 0.0, Nucleated Red Blood Cells % (auto) 0.0, Total Bilirubin 2.5H, Direct Bilirubin 1.8H, Aspartate Amino Transf (AST/SGOT) 897H, Alanine Aminotransferase (ALT/SGPT) 570H, Alkaline Phosphatase 75, Total Creatine Kinase 93, Creatine Kinase MB 1.7, Creatine Kinase MB Relative Index 1.83, Troponin I 0.04, Total Protein 7.5, Albumin 3.8, Albumin/Globulin Ratio 1.0L, Lipase 434H 09/13/20 14:03: Coronavirus (COVID-19)(PCR) NEGATIVE, Influenza Type A (RT-PCR) NEGATIVE, Influenza Type B (RT-PCR) NEGATIVE, Respiratory Syncytial Virus (PCR) NEGATIVE CBC/BMP Laboratory Tests 09/13/20 11:16 Problems (1) Common bile duct dilatation Status: Acute Problem Text: She probably has a gallstone in her common bile duct causing obstruction, although the imaging is not 100% clear on this. I have ordered an MRCP for tomorrow to help clarify this as well as to evaluate whether the body has worked the stones out yet. I also consulted Dr. Valdez who will evaluate her and determine whether she needs an ERCP tomorrow. Much of this evaluation will be based on the results of the MRCP done earlier in the day tomorrow. (2) Cholelithiasis Status: Chronic Problem Text: She very well may need cholecystectomy in the future, but probably should be during a different admission. Unless she gets very ill I will refer her to general surgery for outpatient follow-up after her common bile duct dilation is dealt with. (3) SLE (systemic lupus erythematosus) Status: Chronic Problem Text: Continue current medications, monitor. (4) Hypertension Status: Chronic Problem Text: Continue current medications, monitor. Plan / VTE VTE Prophylaxis Ordered?: Yes (Mechanical) VTE Exclusion Pharmacological: Bleeding Risk Plan Plan She verbally identifies her , Luis Hallman , as her alternate decision-maker if she is unable to make her own medical decisions. She wishes to be FULL CODE Mitch Cheek MD Sep 13, 2020 15:42
[2020-09-13] MEDS: PANTOPRAZOLE 40MG VIAL (C9113 PER 1) IV SCH (17:04)
[2020-09-13] MEDS: PIPERACILLIN/TAZOBACTAM SOD 3.375 GM in D5W MINI-BAG PLUS 50 ML IV SCH (21:19)
[2020-09-13] MEDS: lisinopriL 5 MG TAB PO SCH (21:20)
[2020-09-13 22:00] VITALS: BP 150/66
[2020-09-14] MEDS: PIPERACILLIN/TAZOBACTAM SOD 3.375 GM in D5W MINI-BAG PLUS 50 ML IV SCH ×4 (02:43→21:50)
[2020-09-14] MEDS: LEVOTHYROXINE 50MCG TABLET (0.05MG) PO SCH (05:08)
[2020-09-14 06:00] VITALS: BP 142/61
[2020-09-14 06:11] LABS: HEMATOCRIT 35.7 % (36.0-47.0); HEMOGLOBIN 11.4 g/dl (12.0-15.5); MEAN CORPUSCULAR HEMOGLOBIN 30.5 pg (27.0-33.0); MEAN CORPUSCULAR HGB CONC 31.9 g/dl (32.0-36.5); MEAN CORPUSCULAR VOLUME 95.5 fl (80.0-96.0); PLATELET COUNT, AUTOMATED 134 10^3/uL (150-450); RED BLOOD COUNT 3.74 10^6/uL (4.00-5.40); WHITE BLOOD COUNT 4.6 10^3/uL (4.0-10.0)
[2020-09-14 06:37] LABS: ALBUMIN 3.1 GM/DL (3.2-5.2); BILIRUBIN,TOTAL 1.5 MG/DL (0.2-1.0); CALCIUM LEVEL 8.9 MG/DL (8.8-10.2); CREATININE FOR GFR 1.11 MG/DL (0.55-1.30); GLOMERULAR FILTRATION RATE 50.6 (>39); POTASSIUM SERUM 4.1 MEQ/L (3.5-5.1); TOTAL PROTEIN 6.4 GM/DL (6.4-8.2)
[2020-09-14] MEDS: PANTOPRAZOLE 40MG VIAL (C9113 PER 1) IV SCH (09:17)
--- NOTE | 2020-09-14 12:31 | IPNPDOC ---
Subjective Date Seen The patient was seen on 09/14/20. Objective Physical Examination General Exam: Positive: Alert, Cooperative (sitting up in the ER strecher with the head of the bed elevated when I entered the room), No Acute Distress Eye Exam: Positive: Conjunctiva & lids normal; Negative: Sclera icteric ENT Exam: Positive: Atraumatic, Mucous membr. moist/pink, Pharynx Normal Neck Exam: Positive: Supple, Other (there is a well healed scar on her anterior chest from her previous thyroid surgery); Negative: thyromegaly, Lymphadenopathy Chest Exam: Positive: Clear to auscultation, Normal air movement Heart Exam: Positive: Rate Normal, Regular Rhythm, Normal S1, Normal S2; Negative: Murmurs Telemetry: Positive: No significant arrhythmia Abdomen Exam: Positive: BS Hypoactive, Tenderness (especially in the RUQ) Extremity Exam: Positive: Normal pulses; Negative: Edema, Swelling Skin Exam: Positive: Nl turgor and temperature Neuro Exam: Positive: Normal Speech, Normal Tone Psych Exam: Positive: Mental status NL, Mood NL, Oriented x 3 Assessment /Plan Problems (1) Common bile duct dilatation Status: Acute Problem Text: She probably has a gallstone in her common bile duct causing obstruction, although the imaging is not 100% clear on this. I have ordered an MRCP for tomorrow to help clarify this as well as to evaluate whether the body has worked the stones out yet. I also consulted Dr. Valdez who will evaluate her and determine whether she needs an ERCP tomorrow. Much of this evaluation will be based on the results of the MRCP done earlier in the day tomorrow. (2) Cholelithiasis Status: Chronic Problem Text: She very well may need cholecystectomy in the future, but probably should be during a different admission. Unless she gets very ill I will refer her to general surgery for outpatient follow-up after her common bile duct dilation is dealt with. (3) SLE (systemic lupus erythematosus) Status: Chronic Problem Text: Continue current medications, monitor. (4) Hypertension Status: Chronic Problem Text: Continue current medications, monitor. Plan/VTE VTE Prophylaxis Ordered?: Yes (Mechanical) VTE Exclusion Pharmacological: Bleeding Risk VS, I&O, 24H, Fishbone Vital Signs/I&O Vital Signs Date Time Temp Pulse Resp B/P (MAP) Pulse Ox O2 Delivery O2 Flow Rate FiO2 09/14/20 06:00 99.1 56 16 142/61 (88) 94 Room Air I&O- Last 24 Hours up to 6 AM 09/14/20 06:00 Intake Total 650 ml Balance 650 ml Laboratory Data 24H LABS Laboratory Tests 2 09/13/20 14:03: Coronavirus (COVID-19)(PCR) NEGATIVE, Influenza Type A (RT-PCR) NEGATIVE, Influenza Type B (RT-PCR) NEGATIVE, Respiratory Syncytial Virus (PCR) NEGATIVE 09/14/20 05:48: Nucleated Red Blood Cells % (auto) 0.0, Anion Gap 4L, Glomerular Filtration Rate 50.6, Calcium Level 8.9, Total Bilirubin 1.5H, Aspartate Amino Transf (AST/SGOT) 613H, Alanine Aminotransferase (ALT/SGPT) 712H, Alkaline Phosphatase 76, Total Protein 6.4, Albumin 3.1L, Albumin/Globulin Ratio 0.9L 09/14/20 11:19: Lab Scanned Report Miscellaneous Lab CBC/BMP Laboratory Tests 09/14/20 05:48 Mitch Cheek MD Sep 14, 2020 12:31
--- NOTE | 2020-09-14 13:56 | REP ---
INDICATION: CHOLEDOCOLITHIASIS WITH OBSTRUCTION. COMPARISON: Ultrasound 09/13/2020. TECHNIQUE: Multiple heavily T2 weighted sequences are obtained in the axial and coronal planes. 3D MIP reconstruction images are performed. FINDINGS: The gallbladder is moderately dilated. Subcentimeter filling defects in the gallbladder consistent with gallstones. Gallbladder wall does not appear to be thickened or edematous. There is mild central intrahepatic biliary dilatation. The common bile duct is mildly dilated up to 8 mm. The caliber of the common bile duct tapers gradually distally to the ampulla of Vater. No filling defect is seen in the lumen of the common bile duct. The pancreatic duct is normal in caliber. In the head of the pancreas there is a 4 mm cyst. More superiorly in the head of the pancreas the 2 adjacent cysts measure 4 mm and 2 mm in diameter. A cyst in the lower pole the right kidney measures 1.5 cm. IMPRESSION: Moderately dilated gallbladder containing subcentimeter stones. No gallbladder wall thickening or edema. Mild intrahepatic and extrahepatic biliary dilatation without MR evidence of choledocholithiasis. A tiny obstructing calculus or lesion at the ampulla of Vater cannot totally be excluded. Consider conventional ERCP. There is no pancreatic duct dilatation. Few tiny cysts in the head of the pancreas are of doubtful significance. <Electronically signed by Usman Rajput > 09/14/20 [id number]
[2020-09-14 14:00] VITALS: BP 152/66
--- NOTE | 2020-09-14 19:41 | ECGEPIP ---
[facility] - ED Test Date: 2020-09-13 Pat Name: RADHA MONZON Department: Room: - Gender: Female Senior Visual Designer: TEVIN : 1940 Requested By: Mary Monreal Order Number: [id number] Reading MD: Mary Monreal Measurements Intervals [place] Rate: 57 P: 40 LA: 176 QRS: -16 QRSD: 126 T: 16 QT: 464 QTc: 451 Interpretive Statements Sinus bradycardia Left ventricular hypertrophy with QRS widening and repolarization abnormality ( R in aVL , Lon product , Romhilt-Villarreal ) NSTTW abnormalities No prior Electronically Signed on 09-14-2020 19:40:59 EDT by Mary Monreal
[2020-09-14 21:30] VITALS: BP 150/73
[2020-09-14 21:51] VITALS: BP 150/73
[2020-09-14] MEDS: lisinopriL 5 MG TAB PO SCH (21:51)
[2020-09-15] MEDS: PIPERACILLIN/TAZOBACTAM SOD 3.375 GM in D5W MINI-BAG PLUS 50 ML IV SCH ×2 (03:01→08:43)
[2020-09-15 05:08] VITALS: BP 158/72
[2020-09-15] MEDS: LEVOTHYROXINE 50MCG TABLET (0.05MG) PO SCH (05:08)
[2020-09-15 06:37] LABS: BASO % 0.7 % (0.0-1.0); EOS # 0.2 10^3/uL (0.0-0.5); EOS % 3.8 % (0.0-3.0); HEMATOCRIT 36.5 % (36.0-47.0); HEMOGLOBIN 11.5 g/dl (12.0-15.5); LYMPH # 1.2 10^3/uL (1.5-5.0); LYMPH % 22.5 % (24.0-44.0); MEAN CORPUSCULAR HEMOGLOBIN 29.9 pg (27.0-33.0); MEAN CORPUSCULAR HGB CONC 31.5 g/dl (32.0-36.5); MEAN CORPUSCULAR VOLUME 94.8 fl (80.0-96.0); MONO # 0.6 10^3/uL (0.0-0.8); MONO % 10.1 % (2.0-8.0); NEUTROPHILS # 3.4 10^3/uL (1.5-8.5); NEUTROPHILS % 62.7 % (36.0-66.0); PLATELET COUNT, AUTOMATED 131 10^3/uL (150-450); RED BLOOD COUNT 3.85 10^6/uL (4.00-5.40); WHITE BLOOD COUNT 5.5 10^3/uL (4.0-10.0)
[2020-09-15 06:59] LABS: ALBUMIN 3.1 GM/DL (3.2-5.2); CALCIUM LEVEL 8.6 MG/DL (8.8-10.2); CREATININE FOR GFR 1.09 MG/DL (0.55-1.30); GLOMERULAR FILTRATION RATE 51.7 (>39); POTASSIUM SERUM 3.9 MEQ/L (3.5-5.1); TOTAL PROTEIN 6.2 GM/DL (6.4-8.2)
[2020-09-15] MEDS: PANTOPRAZOLE 40MG VIAL (C9113 PER 1) IV SCH (08:43)
[2020-09-15] MEDS ORDERED: BACI1CAP PO (09:58)
[2020-09-15] MEDS ORDERED: AUGM875T28 PO (09:58)
--- NOTE | 2020-09-15 13:32 | DSES ---
DISCHARGE SUMMARY DATE OF ADMISSION: 09/13/2020 DATE OF DISCHARGE: 09/15/2020 LAYOUT DESIGNER: ALEXI RAMIREZ MD PROCEDURES DURING THIS ADMISSION: None. PRIMARY DISCHARGE DIAGNOSIS: 1. Choledocholithiasis. 2. Common bile duct stone. 3. History of systemic lupus erythematosus. 4. Hypertension. DISCHARGE MEDICATIONS: 1. Augmentin 875 p.o. b.i.d. 2. Bacid one cap p.o. with meals. 3. Celebrex 100 b.i.d. 4. Synthroid 50 mcg daily. 5. Lisinopril 5 mg q.h.s. 6. Olopatadine one drop OU daily. 7. Prednisone 5 mg q. 2 days. 8. Tramadol 50 mg q. 6 as needed for pain. HOSPITAL COURSE: This is a 80-year-old female with a history of cholelithiasis who presented to the Emergency Room with right upper quadrant abdominal pain radiating between the shoulder blades without fever or chills, accompanied with nausea and vomiting and bloating. Ultrasound of the abdomen showed cholelithiasis and dilated common bile duct. Liver function tests showed a bilirubin of 2.5, a direct bilirubin of 1.8. Patient was kept NPO, started on intravenous fluids. MRCP done on 09/14/2020 showed a moderately dilated gallbladder containing subcentimeter stones without gallbladder wall thickening or edema with mild intrahepatic and extrahepatic biliary dilatation without MR evidence of choledocholithiasis. A tiny obstructive calculus or lesion at the ampulla of Vater cannot be excluded, consider ERCP but no pancreatic ductal dilatation seen. A few tiny cysts seen at the head of the pancreas are without full significance. Dr. Ramirez reviewed the case with Dr. Cheek and decided to monitor patient's liver function tests before deciding on ERCP. Patient was kept NPO on admission with improved abdominal pain and started on a clear liquid diet which he tolerated without nausea, vomiting or abdominal pain. Bilirubin returned to normal at 1.0. AST and ALT decreased down to 274 and 447 AST and ALT respectively from admission of 897 and 570. Patient's abdominal pain has completely resolved, tolerating her clear liquid diet. Patient was not scheduled for ERCP since she has passed her stone and liver function tests were improving with normal bilirubin numbers and eating without nausea, vomiting or abdominal pain. Dr. Borden, general surgeon artist consultant recommended outpatient laparoscopic cholecystectomy and follow-up in the office instead of doing an inpatient consultation. He can see her today, 09/15/2020 around 3:30 p.m. Patient was agreeable to see the surgeon as an outpatient, to schedule outpatient laparoscopic cholecystectomy. She wanted to wait until she saw her grandson in about a weeks time before undergoing cholecystectomy. PHYSICAL EXAMINATION ON DISCHARGE: VITAL SIGNS: Temperature 98, pulse 54, respiratory rate 17, blood pressure is 158/72, 96% on room air. GENERAL: Patient is anicteric. No jaundice. No distress. Speaks in full sentences. No cyanosis. Moist mucous membranes. NECK: No JVD or thyromegaly. LUNGS: Clear to auscultation. No wheezing, rales or rhonchi. HEART: S1 and S2, sinus rhythm. ABDOMEN: Soft, nontender and nondistended. Positive bowel sounds. No rebound or guarding. EXTREMITIES: No cyanosis, clubbing or pitting edema. Laboratory data, microbiology and imaging studies have been reviewed. TIME SPENT ON DISCHARGE: 30 minutes MTDD
== END 2020-09-15 15:00 | disposition home or self-care (01) | DRG 446 ==
LOC: M ED 10:25 → M ED INP 15:11 → ENRESERV 16:06 → M MS5PR 17:00
PROVIDERS: ADMIT Family Medicine; ATTEND General Practice
DX: K80.51 Calculus of bile duct without cholangitis or cholecystitis with obstruction (principal); M32.9 Systemic lupus erythematosus, unspecified; I10 Essential (primary) hypertension; E89.0 Postprocedural hypothyroidism; Z96.653 Presence of artificial knee joint, bilateral; Z20.822 Contact with and (suspected) exposure to COVID-19; Z79.52 Long term (current) use of systemic steroids; Z79.899 Other long term (current) drug therapy

== ENCOUNTER → 2020-10-05 | Outpatient (CLI) | payer MEDICARE, BC ==
[~2020-10-05] MED LIST changes: +AUGM875T28 PO; +BACI1CAP PO; +CELE100C PO; +ERGO500029; +LISI-898 PO; +OLOP2.5D7 OU; +PRED5TA PO; +SYNT50TA PO; +TRAM50TA2 PO; +VALA1TAB5
--- NOTE | 2020-10-06 05:05 | ECHO ---
ECHOCARDIOGRAM DATE OF PROCEDURE: 10/05/2020 Age: 80 Gender: F Height: 67 inches Weight: 177 pounds Body Surface Area: 1.92 meters squared Outpatient REFERRING PHYSICIAN: Dr. Manda Webber INDICATION: LVH (left ventricular hypertrophy) MEASUREMENTS: 2D Measurements: RV - 3.0 cm LV - 3.6 cm Septum 1.3 cm Posterior wall 1.3 cm Aortic Root 3.4 cm LA - 4.3 cm LVEF 60% Doppler Measurements: AV - 1.48 m/s LVOT - 0.8 m/s LVOT diameter 2.0 cm MV-E 40, A 58, E/A ratio 0.7 Early mitral deceleration time 320 msec PV - 0.8 m/s Pulmonary artery acceleration time 113 msec RVSP 34 mmHg IVC - 1.9 cm COMMENTS: Sinus bradycardia with subtle driven interventricular conduction disturbance. M-mode and 2-dimensional echocardiography was performed with pulse, continuous wave, and color flow Doppler study. Mild concentric left ventricular hypertrophy with normal wall motion. Mildly dilated left atrium with grade 1 left ventricular (LV) diastolic dysfunction but current estimated mean left atrial pressure within normal limits. Normal right heart chamber sizes and motion with Doppler evidence of mild pulmonary hypertension. Normal inferior vena cava (IVC) size and collapse against an elevated central venous pressure. Normal aortic dimensions. Mild aortic valvular sclerosis without functional abnormality. Subtle mitral annular thickening with normal leaflet excursion and no posterior systolic buckling. Only very mild mitral insufficiency. Normal-appearing tricuspid valve with mild insufficiency. No apparent intracardiac mass or pericardial effusion.
== END ==
LOC: M CARPUL 10:25
PROVIDERS: ATTEND Family Medicine
DX: I51.7 Cardiomegaly (principal)

== ENCOUNTER → 2020-10-12 | Outpatient (CLI) | payer MEDICARE, BC | LOC: M LABSMTC 09:27 | PROVIDERS: ATTEND Anesthesiology | DX: Z01.812 Encounter for preprocedural laboratory examination (principal); Z20.822 Contact with and (suspected) exposure to COVID-19 ==

== ENCOUNTER 2020-10-16 08:48 | Day surgery (SDC) | payer MEDICARE, BC ==
[~2020-10-16] VITALS: Ht 170.2 cm; Wt 81.6 kg
[2020-10-16] MEDS ORDERED: BUPIVACAINE/EPIN 0.25% 30 ML VIAL As Ordered ONE (11:16)
[2020-10-16] MEDS ORDERED: fentaNYL 250 MCG/5 ML INJECTION (J3010) As Ordered ONE (11:46)
[2020-10-16] MEDS ORDERED: LIDOCAINE 2% 100MG/5ML SDV (FOR ANES.) As Ordered ONE (11:46)
[2020-10-16] MEDS ORDERED: ONDANSETRON 4MG/2ML VIAL As Ordered ONE (11:46)
[2020-10-16] MEDS ORDERED: dexameTHASONE 4 MG/ML 1ML VIAL (J1100 PER 1MG) As Ordered ONE (11:46)
[2020-10-16] MEDS ORDERED: ROCURONIUM BROMIDE 50 MG/5 ML VIAL As Ordered ONE ×2 (11:46→12:03)
[2020-10-16] MEDS ORDERED: KETOROLAC 60MG 2ML VIAL As Ordered ONE (11:46)
[2020-10-16] MEDS ORDERED: SUGAMMADEX SODIUM 500 MG/5 ML VIAL (BRIDION) As Ordered ONE (11:46)
[2020-10-16] MEDS ORDERED: MIDAZOLAM INJ 2MG/2ML VIAL (J2250 PER 1MG) As Ordered ONE (11:46)
[2020-10-16] MEDS ORDERED: propofoL 200 MG/20 ML VIAL As Ordered ONE (11:46)
[2020-10-16] MEDS ORDERED: ACETAMINOPHEN 1000MG 100ML IV BTL (OFIRMEV) (J0131 PER 10MG) As Ordered ONE (12:23)
[2020-10-16] MEDS ORDERED: ePHEDrine SULFATE 25 MG/5 ML(5MG/ML) SYRINGE As Ordered ONE (12:29)
[2020-10-16] MEDS ORDERED: PHENYLephrine 500MCG 5ML (100MCG/ML) SYRINGE As Ordered ONE (12:29)
[2020-10-16] MEDS ORDERED: ONDANSETRON 4MG/2ML VIAL IV PRN (13:15)
[2020-10-16] MEDS ORDERED: LR 1,000 ML IV SCH (13:15)
[2020-10-16] MEDS ORDERED: fentaNYL 100 MCG/2 ML INJECTION (J3010) IV PRN (13:15)
[2020-10-16] MEDS ORDERED: oxyCODONE 5MG TAB PO PRN (13:15)
[2020-10-16] MEDS ORDERED: NORCO, ANEXSIA 5/325MG TABLET (HYDROcodone/ACETAMINOPHEN) PO PRN (13:25)
[2020-10-16 14:15] VITALS: BP 189/84
--- NOTE | 2020-10-16 15:44 | RO ---
OPERATIVE NOTE DATE OF OPERATION: 10/16/2020 PREOPERATIVE DIAGNOSIS: Cholelithiasis. POSTOPERATIVE DIAGNOSIS: Cholelithiasis. PROCEDURE: Robotic cholecystectomy. SURGEON: Dr. Usman Borden SADDLE STITCHING MACHINE OPERATOR: Valerie Garcia ANESTHESIA: General. ESTIMATED BLOOD LOSS: 5 COMPLICATIONS: None. INDICATIONS FOR PROCEDURE: Patient is a 80-year-old female who presents with persistent right upper quadrant pain. She has had known cholelithiasis for a couple of years. Recently she had an endoscopic retrograde cholangiopancreatography (ERCP) done for choledocholithiasis. Recommendation was to proceed with robotic cholecystectomy. Risks and benefits of the procedure, not limited to, but including, bleeding, infection, hernias, damage to surrounding structures, need for further surgery, were discussed in detail with the patient. Informed consent was obtained. Procedure was planned. DESCRIPTION OF PROCEDURE: Patient was brought back to operating room #7. After sufficient sedation, the abdomen was sterilely prepped and draped. Next, a time-out was done to confirm proper patient, proper procedure. Following that, an 8 mm incision was made in the left upper quadrant, Veress needle inserted, and the abdomen was insufflated with 15 mmHg. The Veress needle was then removed, and 8 mm OptiView port was used to gain access to the abdomen. Once the abdomen was entered, three more ports were placed across the upper abdomen into the right upper quadrant. Next, the robot was docked to the ports. From the console, the fundus of the gallbladder was elevated up toward the right shoulder. Cystic duct and cystic artery were carefully dissected free using a combination of blunt and sharp dissection. Once they were both clearly identified, they were both doubly clipped and cut. Gallbladder was then dissected free from the gallbladder fossa using electrocautery. Once it was removed, it was placed inside of a 5 mm EndoCatch bag and brought out through the right lateral port site. Some spilled bile was aspirated out of the hepatic fossa in the right upper quadrant. The abdomen was examined to confirm hemostasis. Ports were then removed. Abdomen was desufflated. Skin incisions were closed with 4-0 vertical subcuticular sutures. The abdomen was cleaned and dried. Steri-Strips, 4 x 4, and tape were applied, thus ending procedure.
== END 2020-10-16 15:23 | disposition home or self-care (01) ==
LOC: M SDC 08:48 → M OPP 08:48
PROVIDERS: ATTEND Surgery
DX: K80.10 Calculus of gallbladder with chronic cholecystitis without obstruction (principal); I10 Essential (primary) hypertension; M19.90 Unspecified osteoarthritis, unspecified site; M32.9 Systemic lupus erythematosus, unspecified; I73.00 Raynaud's syndrome without gangrene; E55.9 Vitamin D deficiency, unspecified; Z79.899 Other long term (current) drug therapy; Z79.52 Long term (current) use of systemic steroids; Z79.891 Long term (current) use of opiate analgesic
CPT/HCPCS: 47562; 88304; J0131; J1100; J1885; J2250; J2370; J2405; J3010; S2900

== ENCOUNTER → 2020-11-26 | Outpatient (CLI) | payer MEDICARE, BC ==
--- NOTE | 2020-11-26 08:59 | REP ---
INDICATION: RUQ PAIN COMPARISON: 09/13/2020 TECHNIQUE: Real time [place] scale ultrasound examination using curved array transducer. FINDINGS: Liver is normal in contour, size, and echogenicity without focal hepatic lesions identified. Pancreas is incompletely evaluated due to interposed bowel gas. The gallbladder is surgically absent. Compensatory biliary ductal dilatation is appreciated and the common bile duct measures 8.5 mm diameter. Right kidney measures 9.8 x 5.3 x 5.3 cm and includes 1.6 cm lower pole complex appearing cystic structure. A 2nd ill-defined hypoechoic area in the lower pole cannot exclude mass lesion. Further evaluation at the right lower quadrant incision site demonstrates what appears to be a ventral hernia containing fat and fluid with peritoneal defect measuring approximately 2 cm diameter and hernia sac measuring roughly 5.9 cm maximal diameter.. IMPRESSION: 1. Right lower quadrant anterior abdominal wall defect suggesting ventral hernia containing fat and fluid. 2. Complex lower pole renal cyst and possible hypoechoic renal mass. The above findings may warrant pre and postcontrast CT of the abdomen and pelvis for further investigation. <Electronically signed by Marcelino Quinn > 11/26/20 [id number]
== END ==
LOC: M RAD 07:04
PROVIDERS: ATTEND Family Medicine
DX: N28.1 Cyst of kidney, acquired (principal); R93.5 Abnormal findings on diagnostic imaging of other abdominal regions, including retroperitoneum

== ENCOUNTER → 2021-02-02 | Outpatient (REF) | payer OTHER ==
[2021-02-02 18:26] LABS: CHOLESTEROL RISK RATIO 2.454 (<5); FREE T4 1.14 NG/DL (0.76-1.46); THYROID STIMULATING HORMONE 0.988 uIU/ML (0.358-3.740); TOTAL 25(OH) VITAMIN D 50.5 NG/ML (30.0-100.0)
== END ==
LOC: M LABDRAWP 16:43
PROVIDERS: ATTEND Internal Medicine
DX: E78.2 Mixed hyperlipidemia (principal); E55.9 Vitamin D deficiency, unspecified; E03.9 Hypothyroidism, unspecified

== ENCOUNTER → 2021-02-17 | Outpatient (CLI) | payer MEDICARE, BC ==
[~2021-02-17] MED LIST changes: -LISI-898 PO; +LISI5TAB11 PO; +PRED25TA PO
== END ==
LOC: M LABSMTC 09:17
PROVIDERS: ATTEND Anesthesiology
DX: Z01.812 Encounter for preprocedural laboratory examination (principal); Z20.822 Contact with and (suspected) exposure to COVID-19

== ENCOUNTER → 2021-02-17 | Outpatient (CLI) | payer MEDICARE, BC | LOC: M RAD 14:59 | PROVIDERS: ATTEND Family Medicine | DX: Z01.812 Encounter for preprocedural laboratory examination (principal); I82.411 Acute embolism and thrombosis of right femoral vein; M79.89 Other specified soft tissue disorders; Z20.822 Contact with and (suspected) exposure to COVID-19 | CPT/HCPCS: 93971; G0463; U0003 ==

== ENCOUNTER → 2021-02-18 | Outpatient (REF) | payer MEDICARE, BC ==
[~2021-02-18] MED LIST changes: +LISI-898 PO; -LISI5TAB11 PO
[2021-02-18 13:09] LABS: BASO % 0.5 % (0.0-1.0); EOS # 0.1 10^3/uL (0.0-0.5); EOS % 1.8 % (0.0-3.0); HEMATOCRIT 39.4 % (36.0-47.0); HEMOGLOBIN 12.3 g/dl (12.0-15.5); LYMPH # 0.9 10^3/uL (1.5-5.0); LYMPH % 15.3 % (24.0-44.0); MEAN CORPUSCULAR HGB CONC 31.2 g/dl (32.0-36.5); MEAN CORPUSCULAR VOLUME 96.1 fl (80.0-96.0); MONO # 0.5 10^3/uL (0.0-0.8); MONO % 9.3 % (2.0-8.0); NEUTROPHILS # 4.1 10^3/uL (1.5-8.5); NEUTROPHILS % 72.9 % (36.0-66.0); PLATELET COUNT, AUTOMATED 172 10^3/uL (150-450); WHITE BLOOD COUNT 5.6 10^3/uL (4.0-10.0)
[2021-02-18 13:40] LABS: ALT/SGPT 25 U/L (12-78); BILIRUBIN,TOTAL 0.3 MG/DL (0.2-1.0); BLOOD UREA NITROGEN 29 MG/DL (7-18); CALCIUM LEVEL 9.1 MG/DL (8.8-10.2); CARBON DIOXIDE LEVEL 33 MEQ/L (21-32); CHLORIDE LEVEL 103 MEQ/L (98-107); CREATININE FOR GFR 0.93 MG/DL (0.55-1.30); GLOMERULAR FILTRATION RATE > 60.0 (>39); GLUCOSE, FASTING 81 MG/DL (70-100); POTASSIUM SERUM 4.3 MEQ/L (3.5-5.1); SODIUM LEVEL 139 MEQ/L (136-145); TOTAL PROTEIN 7.2 GM/DL (6.4-8.2)
[2021-02-18 13:41] LABS: ALBUMIN 3.7 GM/DL (3.2-5.2)
== END ==
LOC: M SFHCADAM 10:55
PROVIDERS: ATTEND Family Medicine
DX: Z01.818 Encounter for other preprocedural examination (principal)

== ENCOUNTER → 2021-03-01 | Outpatient (CLI) | payer MEDICARE, BC ==
[~2021-03-01] MED LIST changes: +GASTROGRAFIN SOLUTION 30ML (Q9963) As Ordered ONE; +ISOVUE-370 76% 100ML VIAL As Ordered ONE; -LISI-898 PO; +LISI5TAB11 PO
== END ==
LOC: M RAD 15:34
PROVIDERS: ATTEND Family Medicine
DX: K43.9 Ventral hernia without obstruction or gangrene (principal); K86.89 Other specified diseases of pancreas; I72.2 Aneurysm of renal artery
CPT/HCPCS: 74178; Q9963; Q9967

== ENCOUNTER → 2021-07-20 | Outpatient (REF) | payer MEDICARE, BC ==
[~2021-07-20] MED LIST changes: -GASTROGRAFIN SOLUTION 30ML (Q9963) As Ordered ONE; -ISOVUE-370 76% 100ML VIAL As Ordered ONE; +XARE1TAB PO
[2021-07-20 16:54] LABS: BASO % 0.4 % (0.0-1.0); EOS # 0.1 10^3/uL (0.0-0.5); EOS % 2.7 % (0.0-3.0); LYMPH # 1.3 10^3/uL (1.5-5.0); LYMPH % 25.1 % (24.0-44.0); MEAN CORPUSCULAR HEMOGLOBIN 31.2 pg (27.0-33.0); MEAN CORPUSCULAR HGB CONC 31.7 g/dl (32.0-36.5); MEAN CORPUSCULAR VOLUME 98.3 fl (80.0-96.0); MONO # 0.4 10^3/uL (0.0-0.8); MONO % 8.2 % (2.0-8.0); NEUTROPHILS # 3.4 10^3/uL (1.5-8.5); NEUTROPHILS % 63.6 % (36.0-66.0); PLATELET COUNT, AUTOMATED 151 10^3/uL (150-450); RED BLOOD COUNT 4.17 10^6/uL (4.00-5.40); WHITE BLOOD COUNT 5.3 10^3/uL (4.0-10.0)
[2021-07-20 17:02] LABS: APPEARANCE, URINE CLEAR (CLEAR); BACTERIA, URINE AUTO NEGATIVE (NEGATIVE); BILIRUBIN, URINE AUTO NEGATIVE (NEGATIVE); BLOOD, URINE BLOOD NEGATIVE (NEGATIVE); COLOR, URINE STRAW (YELLOW); GLUCOSE, URINE (UA) AUTO NEGATIVE (NEGATIVE); KETONE, URINE AUTO TRACE mg/dL (NEGATIVE); LEUKOCYTE ESTERASE, URINE AUTO NEGATIVE (NEGATIVE); NITRITE, URINE AUTO NEGATIVE (NEGATIVE); PROTEIN, URINE AUTO NEGATIVE (NEGATIVE); RBC, URINE AUTO 1 /HPF (0-3); SPECIFIC GRAVITY URINE AUTO 1.012 (1.002-1.035); SQUAMOUS EPITHELIAL CELL UR AU 0 /HPF (0-6); UROBILINOGEN, URINE AUTO 0.2 mg/dL (0.0-2.0); WBC, URINE AUTO 0 /HPF (0-3)
[2021-07-20 17:27] LABS: CREATININE,RANDOM URINE 42.6 MG/DL; TOTAL PROTEIN,RANDOM URINE 10.6 MG/DL (0.0-12.0)
[2021-07-20 17:29] LABS: ALT/SGPT 28 U/L (12-78); BILIRUBIN,DIRECT 0.1 MG/DL (0.0-0.2); BILIRUBIN,TOTAL 0.5 MG/DL (0.2-1.0); BLOOD UREA NITROGEN 26 MG/DL (7-18); CARBON DIOXIDE LEVEL 31 MEQ/L (21-32); CHLORIDE LEVEL 103 MEQ/L (98-107); COMPLEMENT C3 120 MG/DL (90-180); COMPLEMENT C4 33 MG/DL (10-40); CREATININE FOR GFR 0.75 MG/DL (0.55-1.30); GLOMERULAR FILTRATION RATE > 60.0 (>39); GLUCOSE, FASTING 89 MG/DL (70-100); POTASSIUM SERUM 4.9 MEQ/L (3.5-5.1); SODIUM LEVEL 138 MEQ/L (136-145); TOTAL PROTEIN 7.6 GM/DL (6.4-8.2)
== END ==
LOC: M SFHCRHEU 12:01
PROVIDERS: ATTEND Internal Medicine
DX: M32.9 Systemic lupus erythematosus, unspecified (principal)

== ENCOUNTER → 2021-08-04 | Outpatient (CLI) | payer MEDICARE, BC ==
[~2021-08-04] MED LIST changes: +CELE1CAP7 PO; +VITA200032 PO; +XARE20TA
== END ==
LOC: M LABSMTC 09:56
PROVIDERS: ATTEND Anesthesiology
DX: Z01.812 Encounter for preprocedural laboratory examination (principal); Z20.822 Contact with and (suspected) exposure to COVID-19

== ENCOUNTER → 2021-10-05 | Outpatient (CLI) | payer MEDICARE, BC ==
[2021-10-05 14:26] LABS: BLOOD UREA NITROGEN 25 MG/DL (7-18); CALCIUM LEVEL 9.2 MG/DL (8.8-10.2); CARBON DIOXIDE LEVEL 32 MEQ/L (21-32); CHLORIDE LEVEL 104 MEQ/L (98-107); CHOLESTEROL LEVEL 253 MG/DL (<200); CHOLESTEROL RISK RATIO 2.386 (<5); CREATININE FOR GFR 0.82 MG/DL (0.55-1.30); GLOMERULAR FILTRATION RATE > 60.0 (>39); GLUCOSE, FASTING 86 MG/DL (70-100); HDL CHOLESTEROL 106 MG/DL (>40); LDL CHOLESTEROL 136 MG/DL (<100); NON-HDL-C 147 MG/DL; POTASSIUM SERUM 4.4 MEQ/L (3.5-5.1); SODIUM LEVEL 139 MEQ/L (136-145); TRIGLYCERIDES LEVEL 57 MG/DL (<150)
== END ==
LOC: M ADAMS 07:55
PROVIDERS: ATTEND Internal Medicine Cardiovascular Disease
DX: E78.00 Pure hypercholesterolemia, unspecified (principal); I10 Essential (primary) hypertension

== ENCOUNTER → 2021-11-18 | Outpatient (REF) | payer MEDICARE, BC | LOC: M SFHCRHEU 11:02 | PROVIDERS: ATTEND Internal Medicine | DX: M32.9 Systemic lupus erythematosus, unspecified (principal); E55.9 Vitamin D deficiency, unspecified; Z79.890 Hormone replacement therapy; Z79.899 Other long term (current) drug therapy ==

== ENCOUNTER 2021-11-19 06:00 | Day surgery (SDC) | payer MEDICARE, BC ==
[~2021-11-19] VITALS: Ht 172.7 cm; Wt 83.8 kg
[~2021-11-19 06:00] MED LIST changes: +ceFAZolin SOD 2 GM in IV 1 EA IV ONE
[2021-11-19] MEDS ORDERED: LR 1,000 ML IV SCH ×2 (06:30→09:00)
[2021-11-19] MEDS ORDERED: propofoL 200 MG/20 ML VIAL As Ordered ONE (07:12)
[2021-11-19] MEDS ORDERED: LIDOCAINE 2% 100MG/5ML SDV (FOR ANES.) As Ordered ONE (07:12)
[2021-11-19] MEDS ORDERED: ROCURONIUM BROMIDE 50 MG/5 ML VIAL As Ordered ONE ×2 (07:12→08:32)
[2021-11-19] MEDS ORDERED: MIDAZOLAM INJ 2MG/2ML VIAL (J2250 PER 1MG) As Ordered ONE (07:13)
[2021-11-19] MEDS ORDERED: fentaNYL 100 MCG/2 ML INJECTION As Ordered ONE (07:13)
[2021-11-19] MEDS ORDERED: BUPIVACAINE/EPIN 0.25% 30 ML VIAL As Ordered ONE (07:14)
[2021-11-19] MEDS ORDERED: dexameTHASONE 4 MG/ML 1ML VIAL (J1100 PER 1MG) As Ordered ONE (07:49)
[2021-11-19] MEDS ORDERED: ePHEDrine SULFATE 25 MG/5 ML(5MG/ML) SYRINGE As Ordered ONE (07:51)
[2021-11-19] MEDS ORDERED: PHENYLephrine 500MCG 5ML (100MCG/ML) SYRINGE As Ordered ONE (07:53)
[2021-11-19] MEDS ORDERED: GLYCOPYRROLATE INJ 0.2 MG/ML 2 ML VIAL As Ordered ONE (08:09)
[2021-11-19] MEDS ORDERED: ONDANSETRON 4MG 2ML VIAL As Ordered ONE (08:15)
[2021-11-19] MEDS ORDERED: KETOROLAC 60MG 2ML VIAL As Ordered ONE (08:15)
[2021-11-19] MEDS ORDERED: ACETAMINOPHEN 1000MG 100ML IV BTL (OFIRMEV) (J0131 PER 10MG) As Ordered ONE (08:15)
[2021-11-19] MEDS ORDERED: SUGAMMADEX SODIUM 500 MG/5 ML VIAL (BRIDION) As Ordered ONE (08:15)
[2021-11-19] MEDS ORDERED: HYDROmorphone HCL 2MG/ML 1ML VIAL As Ordered ONE (08:16)
[2021-11-19] MEDS ORDERED: fentaNYL 100 MCG/2 ML INJECTION IV PRN (09:00)
[2021-11-19] MEDS ORDERED: ONDANSETRON 4MG 2ML VIAL IV PRN (09:00)
[2021-11-19] MEDS ORDERED: oxyCODONE 5MG TAB PO PRN (09:00)
[2021-11-19] MEDS ORDERED: HYDROMORPHONE HCL 0.5 MG/ 0.5 ML SYRINGE (J1170 PER 1) IV PRN (09:00)
[2021-11-19] MEDS ORDERED: NORCO, ANEXSIA 5/325MG TABLET (HYDROcodone/ACETAMINOPHEN) PO PRN (09:20)
[2021-11-19 09:54] VITALS: BP 130/58
== END 2021-11-19 10:12 | disposition home or self-care (01) ==
LOC: M SDC 06:00
PROVIDERS: ATTEND Surgery
DX: K43.0 Incisional hernia with obstruction, without gangrene (principal); I10 Essential (primary) hypertension; M19.90 Unspecified osteoarthritis, unspecified site; M32.9 Systemic lupus erythematosus, unspecified; I73.00 Raynaud's syndrome without gangrene; Z86.718 Personal history of other venous thrombosis and embolism; Z79.899 Other long term (current) drug therapy; Z91.040 Latex allergy status; Z91.041 Radiographic dye allergy status
CPT/HCPCS: 49655; C1781; J0131; J0690; J1100; J1170; J2250; J2370; J2405; J3010; S2900

== ENCOUNTER → 2022-04-08 | Outpatient (REF) | payer MEDICARE, BC ==
[~2022-04-08] MED LIST changes: -ceFAZolin SOD 2 GM in IV 1 EA IV ONE
[2022-04-08 17:38] LABS: BASO % 0.7 % (0.0-1.0); EOS # 0.1 10^3/uL (0.0-0.5); EOS % 1.5 % (0.0-3.0); HEMATOCRIT 40.7 % (36.0-47.0); HEMOGLOBIN 12.5 g/dl (12.0-15.5); LYMPH # 0.7 10^3/uL (1.5-5.0); LYMPH % 12.7 % (24.0-44.0); MEAN CORPUSCULAR HEMOGLOBIN 30.3 pg (27.0-33.0); MEAN CORPUSCULAR HGB CONC 30.7 g/dl (32.0-36.5); MEAN CORPUSCULAR VOLUME 98.8 fl (80.0-96.0); MONO # 0.4 10^3/uL (0.0-0.8); MONO % 6.9 % (2.0-8.0); NEUTROPHILS # 4.5 10^3/uL (1.5-8.5); NEUTROPHILS % 77.9 % (36.0-66.0); PLATELET COUNT, AUTOMATED 200 10^3/uL (150-450); RED BLOOD COUNT 4.12 10^6/uL (4.00-5.40); WHITE BLOOD COUNT 5.8 10^3/uL (4.0-10.0)
[2022-04-08 17:49] LABS: ERYTHROCYTE SEDIMENTATION RATE 40 mm/hr (0-30)
[2022-04-08 18:06] LABS: ALBUMIN 3.6 G/DL (3.2-5.2); ALKALINE PHOSPHATASE 70 U/L (46-116); ALT/SGPT 18 U/L (7.0-40); AST/SGOT 29 U/L (<34); BILIRUBIN,DIRECT 0.1 MG/DL (<0.4); BILIRUBIN,TOTAL 0.5 MG/DL (0.3-1.2); BLOOD UREA NITROGEN 27 MG/DL (9-23); CALCIUM LEVEL 8.9 MG/DL (8.3-10.6); CARBON DIOXIDE LEVEL 34 MMOL/L (20-31); CHLORIDE LEVEL 102 MMOL/L (98-107); CREATININE FOR GFR 0.86 MG/DL (0.55-1.30); GLOMERULAR FILTRATION RATE > 60.0 (>39); GLUCOSE, FASTING 83 MG/DL (74-106); POTASSIUM SERUM 4.9 MMOL/L (3.5-5.1); SODIUM LEVEL 139 MMOL/L (136-145); TOTAL PROTEIN 6.8 G/DL (5.7-8.2)
[2022-04-08 18:07] LABS: C REACTIVE PROTEIN QUANTITATIV < 0.40 MG/DL (<1.0)
== END ==
LOC: M SFHCADAM 11:21
PROVIDERS: ATTEND Internal Medicine
DX: M32.9 Systemic lupus erythematosus, unspecified (principal)

== ENCOUNTER → 2022-04-18 | Outpatient (REF) | payer MEDICARE, BC ==
[2022-04-18 16:50] LABS: BLOOD UREA NITROGEN 24 MG/DL (9-23); CREATININE FOR GFR 0.84 MG/DL (0.55-1.30); GLOMERULAR FILTRATION RATE > 60.0 (>39)
== END ==
LOC: M LABDRWAD 15:57
PROVIDERS: ATTEND Physician Assistant
DX: I72.2 Aneurysm of renal artery (principal)

== ENCOUNTER → 2022-04-19 | Outpatient (CLI) | payer MEDICARE, BC ==
[~2022-04-19] MED LIST changes: +ISOVUE-370 76% 100ML VIAL As Ordered ONE
== END ==
LOC: M RAD 10:36
PROVIDERS: ATTEND Physician Assistant
DX: I72.2 Aneurysm of renal artery (principal)
CPT/HCPCS: 74175; Q9967

== ENCOUNTER → 2022-05-05 | Outpatient (REF) | payer MEDICARE, BC ==
[~2022-05-05] MED LIST changes: -ISOVUE-370 76% 100ML VIAL As Ordered ONE
[2022-05-05 13:02] LABS: BASO % 0.7 % (0.0-1.0); EOS # 0.1 10^3/uL (0.0-0.5); EOS % 2.2 % (0.0-3.0); HEMATOCRIT 39.3 % (36.0-47.0); LYMPH # 0.8 10^3/uL (1.5-5.0); LYMPH % 13.8 % (24.0-44.0); MEAN CORPUSCULAR HEMOGLOBIN 29.9 pg (27.0-33.0); MEAN CORPUSCULAR HGB CONC 30.5 g/dl (32.0-36.5); MEAN CORPUSCULAR VOLUME 97.8 fl (80.0-96.0); MONO # 0.5 10^3/uL (0.0-0.8); MONO % 8.4 % (2.0-8.0); NEUTROPHILS # 4.2 10^3/uL (1.5-8.5); NEUTROPHILS % 74.7 % (36.0-66.0); PLATELET COUNT, AUTOMATED 156 10^3/uL (150-450); RED BLOOD COUNT 4.02 10^6/uL (4.00-5.40); WHITE BLOOD COUNT 5.6 10^3/uL (4.0-10.0)
[2022-05-05 13:23] LABS: ALBUMIN 3.6 G/DL (3.2-5.2); ALKALINE PHOSPHATASE 72 U/L (46-116); ALT/SGPT 24 U/L (7.0-40); AST/SGOT 28 U/L (<34); BILIRUBIN,DIRECT 0.2 MG/DL (<0.4); BILIRUBIN,TOTAL 0.7 MG/DL (0.3-1.2); BLOOD UREA NITROGEN 27 MG/DL (9-23); CALCIUM LEVEL 9.1 MG/DL (8.3-10.6); CARBON DIOXIDE LEVEL 31 MMOL/L (20-31); CHLORIDE LEVEL 104 MMOL/L (98-107); CREATININE FOR GFR 0.82 MG/DL (0.55-1.30); GLOMERULAR FILTRATION RATE > 60.0 (>39); GLUCOSE, FASTING 90 MG/DL (74-106); POTASSIUM SERUM 4.7 MMOL/L (3.5-5.1); SODIUM LEVEL 141 MMOL/L (136-145); TOTAL PROTEIN 6.7 G/DL (5.7-8.2)
[2022-05-05 13:39] LABS: ERYTHROCYTE SEDIMENTATION RATE 44 mm/hr (0-30)
== END ==
LOC: M SFHCADAM 10:31
PROVIDERS: ATTEND Internal Medicine
DX: M32.9 Systemic lupus erythematosus, unspecified (principal)

== ENCOUNTER → 2022-06-02 | Outpatient (CLI) | payer MEDICARE, BC ==
[2022-06-02 13:35] LABS: BASO # 0.1 10^3/uL (0.0-0.2); BASO % 1.2 % (0.0-1.0); EOS # 0.2 10^3/uL (0.0-0.5); EOS % 4.2 % (0.0-3.0); HEMATOCRIT 40.8 % (36.0-47.0); HEMOGLOBIN 12.8 g/dl (12.0-15.5); LYMPH # 1.2 10^3/uL (1.5-5.0); LYMPH % 24.8 % (24.0-44.0); MEAN CORPUSCULAR HEMOGLOBIN 30.4 pg (27.0-33.0); MEAN CORPUSCULAR HGB CONC 31.4 g/dl (32.0-36.5); MEAN CORPUSCULAR VOLUME 96.9 fl (80.0-96.0); MONO # 0.6 10^3/uL (0.0-0.8); NEUTROPHILS # 2.9 10^3/uL (1.5-8.5); NEUTROPHILS % 57.6 % (36.0-66.0); PLATELET COUNT, AUTOMATED 174 10^3/uL (150-450); RED BLOOD COUNT 4.21 10^6/uL (4.00-5.40)
[2022-06-02 13:51] LABS: ERYTHROCYTE SEDIMENTATION RATE 47 mm/hr (0-30)
[2022-06-02 14:02] LABS: C REACTIVE PROTEIN QUANTITATIV < 0.40 MG/DL (<1.0)
[2022-06-02 14:03] LABS: ALBUMIN 3.5 G/DL (3.2-5.2); ALKALINE PHOSPHATASE 82 U/L (46-116); ALT/SGPT 23 U/L (7.0-40); AST/SGOT 31 U/L (<34); BILIRUBIN,DIRECT 0.2 MG/DL (<0.4); BILIRUBIN,TOTAL 0.7 MG/DL (0.3-1.2); BLOOD UREA NITROGEN 20 MG/DL (9-23); CALCIUM LEVEL 9.1 MG/DL (8.3-10.6); CARBON DIOXIDE LEVEL 33 MMOL/L (20-31); CHLORIDE LEVEL 103 MMOL/L (98-107); CREATININE FOR GFR 0.81 MG/DL (0.55-1.30); GLOMERULAR FILTRATION RATE > 60.0 (>39); GLUCOSE, FASTING 88 MG/DL (74-106); POTASSIUM SERUM 4.6 MMOL/L (3.5-5.1); SODIUM LEVEL 139 MMOL/L (136-145)
== END ==
LOC: M LABDRWAD 08:06
PROVIDERS: ATTEND Internal Medicine
DX: M32.9 Systemic lupus erythematosus, unspecified (principal)

== ENCOUNTER → 2022-07-05 | Outpatient (CLI) | payer MEDICARE, BC | LOC: M RAD 13:08 | PROVIDERS: ATTEND Family Medicine | DX: E07.9 Disorder of thyroid, unspecified (principal) ==

== ENCOUNTER → 2022-08-09 | Outpatient (CLI) | payer MEDICARE ==
[~2022-08-09] MED LIST changes: +ISOVUE-370 76% 100ML VIAL As Ordered ONE
== END ==
LOC: M RAD 14:16
PROVIDERS: ATTEND Otolaryngology
DX: E04.2 Nontoxic multinodular goiter (principal); Z87.891 Personal history of nicotine dependence
CPT/HCPCS: 70491; Q9967

== ENCOUNTER → 2022-08-17 | Outpatient (CLI) | payer MEDICARE, BC ==
[~2022-08-17] MED LIST changes: -ISOVUE-370 76% 100ML VIAL As Ordered ONE; +LIDOCAINE 1% MDV 20ML VIAL As Ordered ONE
[2022-08-17 08:55] VITALS: TEMP 96.6
[2022-08-17 11:15] VITALS: BP 190/92; O2SAT 100
== END ==
LOC: M IRPRO 08:41
PROVIDERS: ATTEND Otolaryngology
DX: E04.2 Nontoxic multinodular goiter (principal)

== ENCOUNTER → 2022-09-20 | Outpatient (REF) | payer MEDICARE, BC ==
[~2022-09-20] MED LIST changes: -LIDOCAINE 1% MDV 20ML VIAL As Ordered ONE
[2022-09-20 14:08] LABS: BASO # 0.1 10^3/uL (0.0-0.2); BASO % 1.1 % (0.0-1.0); EOS # 0.2 10^3/uL (0.0-0.5); EOS % 4.5 % (0.0-3.0); HEMATOCRIT 38.6 % (36.0-47.0); HEMOGLOBIN 12.1 g/dl (12.0-15.5); LYMPH # 1.2 10^3/uL (1.5-5.0); LYMPH % 27.7 % (24.0-44.0); MEAN CORPUSCULAR HEMOGLOBIN 30.8 pg (27.0-33.0); MEAN CORPUSCULAR HGB CONC 31.3 g/dl (32.0-36.5); MEAN CORPUSCULAR VOLUME 98.2 fl (80.0-96.0); MONO # 0.5 10^3/uL (0.0-0.8); MONO % 11.1 % (2.0-8.0); NEUTROPHILS # 2.4 10^3/uL (1.5-8.5); NEUTROPHILS % 55.6 % (36.0-66.0); PLATELET COUNT, AUTOMATED 146 10^3/uL (150-450); RED BLOOD COUNT 3.93 10^6/uL (4.00-5.40); WHITE BLOOD COUNT 4.4 10^3/uL (4.0-10.0)
[2022-09-20 14:36] LABS: ALBUMIN 3.3 G/DL (3.2-5.2); ALKALINE PHOSPHATASE 87 U/L (46-116); ALT/SGPT 24 U/L (7.0-40); AST/SGOT 25 U/L (<34); BILIRUBIN,TOTAL 0.6 MG/DL (0.3-1.2); BLOOD UREA NITROGEN 25 MG/DL (9-23); CALCIUM LEVEL 9.1 MG/DL (8.3-10.6); CARBON DIOXIDE LEVEL 33 MMOL/L (20-31); CHLORIDE LEVEL 105 MMOL/L (98-107); CREATININE FOR GFR 0.83 MG/DL (0.55-1.30); GLOMERULAR FILTRATION RATE > 60.0 (>32); GLUCOSE, FASTING 88 MG/DL (74-106); POTASSIUM SERUM 4.6 MMOL/L (3.5-5.1); SODIUM LEVEL 143 MMOL/L (136-145); TOTAL PROTEIN 6.6 G/DL (5.7-8.2)
== END ==
LOC: M LABDRWAD 12:26
PROVIDERS: ATTEND Internal Medicine Cardiovascular Disease
DX: R53.82 Chronic fatigue, unspecified (principal)

== ENCOUNTER → 2023-02-01 | Outpatient (REF) | payer MEDICARE, BC ==
[~2023-02-01] MED LIST changes: -CELE1CAP7 PO; +CELE1CAP99 PO
[2023-02-01 14:34] LABS: FREE T4 1.03 NG/DL (0.89-1.76); THYROID STIMULATING HORMONE 2.37 uIU/ML (0.55-4.78)
== END ==
LOC: M SFHCADAM 10:29
PROVIDERS: ATTEND Family Medicine
DX: E07.9 Disorder of thyroid, unspecified (principal)

== ENCOUNTER → 2023-06-07 | Outpatient (REF) | payer MEDICARE, BC ==
[2023-06-07 13:37] LABS: BASO % 0.6 % (0.0-1.0); EOS # 0.2 10^3/uL (0.0-0.5); EOS % 3.8 % (0.0-3.0); HEMOGLOBIN 12.5 g/dl (12.0-15.5); LYMPH # 1.3 10^3/uL (1.5-5.0); MEAN CORPUSCULAR HEMOGLOBIN 30.1 pg (27.0-33.0); MEAN CORPUSCULAR HGB CONC 31.3 g/dl (32.0-36.5); MEAN CORPUSCULAR VOLUME 96.4 fl (80.0-96.0); MONO # 0.6 10^3/uL (0.0-0.8); MONO % 12.2 % (2.0-8.0); NEUTROPHILS % 58.2 % (36.0-66.0); PLATELET COUNT, AUTOMATED 159 10^3/uL (150-450); RED BLOOD COUNT 4.15 10^6/uL (4.00-5.40); WHITE BLOOD COUNT 5.2 10^3/uL (4.0-10.0)
[2023-06-07 13:44] LABS: ERYTHROCYTE SEDIMENTATION RATE 52 mm/hr (0-30)
[2023-06-07 14:09] LABS: TOTAL 25(OH) VITAMIN D 34.6 NG/ML (20.0-100.0)
[2023-06-07 14:12] LABS: C REACTIVE PROTEIN QUANTITATIV 0.6 MG/DL (<1.0)
== END ==
LOC: M SFHCRHEU 09:52
PROVIDERS: ATTEND Internal Medicine
DX: M32.9 Systemic lupus erythematosus, unspecified (principal); M85.80 Other specified disorders of bone density and structure, unspecified site; E55.9 Vitamin D deficiency, unspecified; M47.812 Spondylosis without myelopathy or radiculopathy, cervical region

== ENCOUNTER → 2023-08-24 | Outpatient (REF) | payer MEDICARE, BC | LOC: M SFHCRHEU 08:29 | PROVIDERS: ATTEND Internal Medicine Rheumatology | DX: E55.9 Vitamin D deficiency, unspecified (principal); Z51.81 Encounter for therapeutic drug level monitoring ==

== ENCOUNTER → 2023-12-11 | Outpatient (CLI) | payer MEDICARE, BC | LOC: M RAD 13:43 | PROVIDERS: ATTEND Internal Medicine Medical Oncology | DX: C76.0 Malignant neoplasm of head, face and neck (principal) ==

== ENCOUNTER → 2024-02-09 | Outpatient (CLI) | payer MEDICARE, BC | LOC: M RAD 12:29 | PROVIDERS: ATTEND Orthopaedic Surgery | DX: M76.01 Gluteal tendinitis, right hip (principal); M16.11 Unilateral primary osteoarthritis, right hip ==

== ENCOUNTER → 2024-05-02 | Outpatient (REF) | payer MEDICARE, OTHER ==
[2024-05-02 14:15] LABS: BASO % 0.6 % (0.0-1.0); EOS # 0.2 10^3/uL (0.0-0.5); EOS % 3.1 % (0.0-3.0); HEMATOCRIT 37.4 % (36.0-47.0); HEMOGLOBIN 11.9 g/dl (12.0-15.5); LYMPH # 0.9 10^3/uL (1.5-5.0); LYMPH % 19.6 % (24.0-44.0); MEAN CORPUSCULAR HEMOGLOBIN 30.4 pg (27.0-33.0); MEAN CORPUSCULAR HGB CONC 31.8 g/dl (32.0-36.5); MEAN CORPUSCULAR VOLUME 95.7 fl (80.0-96.0); MONO # 0.5 10^3/uL (0.0-0.8); MONO % 10.2 % (2.0-8.0); NEUTROPHILS # 3.2 10^3/uL (1.5-8.5); NEUTROPHILS % 66.3 % (36.0-66.0); PLATELET COUNT, AUTOMATED 153 10^3/uL (150-450); RED BLOOD COUNT 3.91 10^6/uL (4.00-5.40); WHITE BLOOD COUNT 4.8 10^3/uL (4.0-10.0)
[2024-05-02 14:24] LABS: ALBUMIN 3.5 G/DL (3.2-5.2); ALKALINE PHOSPHATASE 82 U/L (35-104); ALT/SGPT 17 U/L (7.0-40); AST/SGOT 25 U/L (<34); BILIRUBIN,TOTAL 0.8 MG/DL (0.3-1.2); BLOOD UREA NITROGEN 20 MG/DL (9-23); CALCIUM LEVEL 9.1 MG/DL (8.3-10.6); CARBON DIOXIDE LEVEL 31 MMOL/L (20-31); CHLORIDE LEVEL 103 MMOL/L (98-107); CHOLESTEROL LEVEL 217 MG/DL (<200); CHOLESTEROL RISK RATIO 2.62 (<5); CREATININE FOR GFR 0.83 MG/DL (0.55-1.30); GLOMERULAR FILTRATION RATE > 60.0 (>32); GLUCOSE, FASTING 95 MG/DL (74-106); HDL CHOLESTEROL 82.6 MG/DL (>40); NON-HDL-C 134.4 MG/DL; POTASSIUM SERUM 4.7 MMOL/L (3.5-5.1); SODIUM LEVEL 143 MMOL/L (136-145); THYROID STIMULATING HORMONE 2.218 uIU/ML (0.55-4.78); TRIGLYCERIDES LEVEL 67 MG/DL (<150)
== END ==
LOC: M SFHCADAM 08:30
PROVIDERS: ATTEND Family Medicine
DX: Z00.00 Encounter for general adult medical examination without abnormal findings (principal); Z79.899 Other long term (current) drug therapy

== ENCOUNTER → 2024-05-29 | Outpatient (CLI) | payer MEDICARE, OTHER | LOC: M WHC 13:05 | PROVIDERS: ATTEND Internal Medicine | DX: M85.89 Other specified disorders of bone density and structure, multiple sites (principal) ==

== ENCOUNTER → 2024-06-26 | Outpatient (CLI) | payer MEDICARE | LOC: M RAD 11:58 | PROVIDERS: ATTEND Nurse Practitioner Women's Health | DX: E04.1 Nontoxic single thyroid nodule (principal) ==

== ENCOUNTER → 2024-09-17 | Outpatient (REF) | payer MEDICARE, OTHER ==
[2024-09-17 13:35] LABS: ESTIMATED AVERAGE GLUCOSE 128.0 MG/DL (60-110)
[2024-09-17 14:02] LABS: ALT/SGPT 14.0 U/L (7.0-40); AST/SGOT 27.0 U/L (<34); CALCIUM LEVEL 9.1 MG/DL (8.3-10.6); CARBON DIOXIDE LEVEL 31.0 MMOL/L (20-31); CHLORIDE LEVEL 102.0 MMOL/L (98-107); CREATININE FOR GFR 1.09 MG/DL (0.55-1.30); FREE T4 1.09 NG/DL (0.89-1.76); GLOMERULAR FILTRATION RATE 50.7 (>32); POTASSIUM SERUM 4.6 MMOL/L (3.5-5.1); SODIUM LEVEL 142.0 MMOL/L (136-145)
== END ==
LOC: M SFHCADAM 09:51
PROVIDERS: ATTEND Family Medicine
DX: I10 Essential (primary) hypertension (principal); Z79.52 Long term (current) use of systemic steroids; E03.9 Hypothyroidism, unspecified; Z79.899 Other long term (current) drug therapy

== ENCOUNTER → 2024-10-16 | Outpatient (CLI) | payer MEDICARE, OTHER ==
[2024-10-16 14:23] LABS: BASO # 0.0 10^3/uL (0.0-0.2); BASO % 0.8 % (0.0-1.0); EOS # 0.2 10^3/uL (0.0-0.5); EOS % 3.1 % (0.0-3.0); LYMPH # 1.3 10^3/uL (1.5-5.0); LYMPH % 25.0 % (24.0-44.0); MONO # 0.5 10^3/uL (0.0-0.8); MONO % 9.9 % (2.0-8.0); NEUTROPHILS # 3.2 10^3/uL (1.5-8.5); NEUTROPHILS % 61.0 % (36.0-66.0); PLATELET COUNT, AUTOMATED 151 10^3/uL (150-450)
[2024-10-16 14:40] LABS: TOTAL PROTEIN,RANDOM URINE 12.7 MG/DL (0.0-14.0)
[2024-10-16 14:47] LABS: APPEARANCE, URINE HAZY (CLEAR); BACTERIA, URINE AUTO NEGATIVE (NEGATIVE); BILIRUBIN, URINE AUTO NEGATIVE (NEGATIVE); BLOOD, URINE BLOOD 1+ (NEGATIVE); GLUCOSE, URINE (UA) AUTO NEGATIVE (NEGATIVE); KETONE, URINE AUTO NEGATIVE (NEGATIVE); LEUKOCYTE ESTERASE, URINE AUTO 2+ (NEGATIVE); MUCUS, URINE SMALL (NEGATIVE); NITRITE, URINE AUTO NEGATIVE (NEGATIVE); PROTEIN, URINE AUTO NEGATIVE (NEGATIVE); RBC, URINE AUTO 2 /HPF (0-3); SPECIFIC GRAVITY URINE AUTO 1.018 (1.002-1.035); SQUAMOUS EPITHELIAL CELL UR AU 3 /HPF (0-6); UROBILINOGEN, URINE AUTO 0.2 mg/dL (0.0-2.0); WBC, URINE AUTO 7 /HPF (0-3)
[2024-10-16 14:48] LABS: C REACTIVE PROTEIN QUANTITATIV 0.71 MG/DL (<1.0)
[2024-10-16 14:49] LABS: ALT/SGPT 18.0 U/L (7.0-40); AST/SGOT 28.0 U/L (<34); CALCIUM LEVEL 9.0 MG/DL (8.3-10.6); CARBON DIOXIDE LEVEL 33.0 MMOL/L (20-31); CHLORIDE LEVEL 103.0 MMOL/L (98-107); CREATININE FOR GFR 0.96 MG/DL (0.55-1.30); GLOMERULAR FILTRATION RATE 59.1 (>32); POTASSIUM SERUM 4.7 MMOL/L (3.5-5.1); SODIUM LEVEL 144.0 MMOL/L (136-145); TOTAL 25(OH) VITAMIN D 42.3 NG/ML (20.0-100.0)
[2024-10-16 14:56] LABS: COMPLEMENT C4 33.2 MG/DL (12-36); ERYTHROCYTE SEDIMENTATION RATE 55 mm/hr (0-30)
== END ==
LOC: M LABDRWAD 09:00
PROVIDERS: ATTEND Internal Medicine
DX: M32.9 Systemic lupus erythematosus, unspecified (principal); Z79.899 Other long term (current) drug therapy